=== PATIENT | male | born 1960 | race American Indian/Alaskan Native ===

== ENCOUNTER 2017-08-19 12:48 | Inpatient (IN) | payer OTHER ==
[2017-08-19 15:37] LABS: Basophils # (Auto) 0.1 K/mm3 (0.0-0.1); Basophils % (Auto) 0.5 % (0.0-1.8); Eosinophils % (Auto) 0.1 % (0.0-4.3); Hematocrit 21.3 % (35.5-45.6); Hemoglobin 6.3 gm/dl (11.8-15.2); Lymphocytes % (Auto) 9.3 % (13.4-35.0); Mean Corpuscular HGB Conc 30 % (32-34); Mean Corpuscular Volume 76 fl (84-94); Monocytes # (Auto) 1.2 K/mm3 (0.0-0.8); Monocytes % (Auto) 11.3 % (0.0-7.3); Platelet Count 387 K/mm3 (140-440); Red Blood Count 2.78 M/mm3 (3.65-5.03)
[2017-08-19 15:38] LABS: Mean Corpuscular Hemoglobin 23 pg (28-32); Red Cell Distribution Width 23.7 % (13.2-15.2)
[2017-08-19 16:16] LABS: Bilirubin,Urine NEG (Negative); Blood,Urine NEG (Negative); Color,Urine Yellow (Yellow); Mucus,Urine FEW /HPF; Nitrite,Urine NEG (Negative); Protein,Urine <15 mg/dL mg/dL (Negative); Urobilinogen,Urine < 2.0 mg/dL (<2.0)
--- NOTE | 2017-08-19 16:35 | Emergency Department Report ---
ED Abdominal Pain HPI - General Chief Complaint: Abdominal Pain Stated Complaint: ABD PAIN Time Seen by Provider: 08/19/17 16:24 Source: EMS Mode of arrival: Stretcher Limitations: Physical Limitation - History of Present Illness MD Complaint: abdominal pain -: Sudden Location: RLQ Radiation: none Migration to: no migration Severity scale (0 -10): 10 Quality: stabbing Consistency: constant Improves With: rest Worsens With: movement Context: recent surgery/procedure (patient had a ileostomy placed at [facility] on ) Associated Symptoms: fever, chills - Related Data Allergies Allergy/AdvReac Type Severity Reaction Status Date / Time No Known Allergies Allergy Unverified 08/19/17 14:51 ED Review of Systems ROS: Stated complaint: ABD PAIN Other details as noted in HPI Comment: All other systems reviewed and negative Constitutional: chills, fever, weakness Eyes: as per HPI ENT: as per HPI Respiratory: no symptoms reported Cardiovascular: as per HPI Endocrine: no symptoms reported Gastrointestinal: as per HPI, abdominal pain Genitourinary: as per HPI Musculoskeletal: as per HPI Skin: as per HPI Neurological: as per HPI, weakness Psychiatric: as per HPI Hematological/Lymphatic: as per HPI ED Past Medical Hx - Past Medical History Previous Medical History?: Yes Additional medical history: Patient has a history of ulcerative colitis with ileostomy hepatitis B cocaine abuse iron deficiency anemia - Surgical History Past Surgical History?: Yes Additional Surgical History: Ileostomy - Family History Family history: no significant - Social History Smoking Status: Former Smoker Substance Use Type: None ED Physical Exam - General Limitations: Physical Limitation General appearance: alert, in no apparent distress - Head Head exam: Present: atraumatic, normocephalic - Eye Eye exam: Present: normal appearance - ENT ENT exam: Present: mucous membranes dry - Neck Neck exam: Present: normal inspection - Respiratory Respiratory exam: Present: normal lung sounds bilaterally. Absent: respiratory distress - Cardiovascular Cardiovascular Exam: Present: regular rate, normal rhythm. Absent: systolic murmur, diastolic murmur, rubs, gallop - GI/Abdominal GI/Abdominal exam: Present: soft, tenderness (right lower quadrant tenderness), normal bowel sounds - Rectal Rectal exam: Present: deferred - Extremities Exam Extremities exam: Present: normal inspection - Back Exam Back exam: Present: normal inspection - Neurological Exam Neurological exam: Present: alert, oriented X3 - Psychiatric Psychiatric exam: Present: normal affect, normal mood - Skin Skin exam: Present: warm, dry, intact, normal color. Absent: rash ED Course Vital Signs 08/19/17 08/19/17 08/19/17 14:39 14:45 14:46 Temperature 101.2 F H Pulse Rate 104 H 122 H 119 H Respiratory 24 22 Rate Blood Pressure 111/59 111/59 Blood Pressure [Right] O2 Sat by Pulse 100 99 Oximetry 08/19/17 08/19/17 08/19/17 14:50 15:00 15:15 Temperature 101.2 F H Pulse Rate 119 H 116 H 118 H Respiratory 22 28 H 23 Rate Blood Pressure 121/79 121/79 Blood Pressure 111/59 [Right] O2 Sat by Pulse 99 100 97 Oximetry 08/19/17 08/19/17 08/19/17 15:30 15:45 16:00 Temperature Pulse Rate 116 H 116 H 119 H Respiratory 26 H 19 17 Rate Blood Pressure 116/77 116/77 121/73 Blood Pressure [Right] O2 Sat by Pulse 100 100 99 Oximetry 08/19/17 08/19/17 08/19/17 16:15 16:30 16:45 Temperature Pulse Rate 117 H 117 H 115 H Respiratory 31 H 30 H 26 H Rate Blood Pressure 121/73 116/78 116/78 Blood Pressure [Right] O2 Sat by Pulse 100 100 100 Oximetry 08/19/17 08/19/17 08/19/17 17:23 17:30 17:35 Temperature Pulse Rate 118 H Respiratory 28 H 15 Rate Blood Pressure 116/78 119/81 Blood Pressure [Right] O2 Sat by Pulse 100 100 Oximetry 08/19/17 08/19/17 08/19/17 17:44 17:46 18:00 Temperature 101.2 F H Pulse Rate 118 H 118 H 115 H Respiratory 15 21 20 Rate Blood Pressure 119/81 109/74 Blood Pressure 111/59 [Right] O2 Sat by Pulse 100 99 Oximetry 08/19/17 08/19/17 08/19/17 18:16 18:30 18:46 Temperature Pulse Rate 116 H 112 H 113 H Respiratory 19 19 18 Rate Blood Pressure 109/74 111/72 111/72 Blood Pressure [Right] O2 Sat by Pulse 98 99 100 Oximetry 08/19/17 08/19/17 08/19/17 19:00 19:16 19:30 Temperature Pulse Rate 112 H 112 H 110 H Respiratory 20 20 20 Rate Blood Pressure 108/73 108/73 89/55 Blood Pressure [Right] O2 Sat by Pulse 100 100 100 Oximetry 08/19/17 08/19/17 08/19/17 19:46 20:00 20:16 Temperature Pulse Rate 109 H 108 H 106 H Respiratory 17 16 23 Rate Blood Pressure 89/55 105/71 105/71 Blood Pressure [Right] O2 Sat by Pulse 100 98 100 Oximetry 08/19/17 08/19/17 20:30 21:22 Temperature 99.3 F Pulse Rate 105 H 105 H Respiratory 20 20 Rate Blood Pressure 106/67 Blood Pressure 111/59 [Right] O2 Sat by Pulse Oximetry ED Medical Decision Making - Lab Data Result diagrams: 08/19/17 15:20 08/19/17 18:00 - Radiology Data Radiology results: report reviewed - Medical Decision Making At [address] hart and he recommends patient be transferred to [facility] where patient had the surgery. however after discussing with [facility], [facility] is currently on diversion for all beds. Will consult hospitalist for admission here for colitis since pt appears stable from a surgical stand point. Hospitalist agreed to admit. - Differential Diagnosis colitis. surgical site infection. Critical care attestation.: If time is entered above; I have spent that time in minutes in the direct care of this critically ill patient, excluding procedure time. ED Disposition Clinical Impression: Abdominal pain, Fever, Colitis Disposition: OP ADMIT IP TO THIS HOSP Is pt being admited?: Yes Does the pt Need Aspirin: No Condition: Serious Time of Disposition: 21:17
[2017-08-19] MEDS ORDERED: TYLENOL PO ONE (16:36)
[2017-08-19] MEDS ORDERED: DILAUDID IV ONE (17:27)
[2017-08-19] MEDS ORDERED: DILAUDID ONE (17:33)
--- NOTE | 2017-08-19 17:50 | Cat Scan Report ---
FINAL REPORT PROCEDURE: CT ABDOMEN PELVIS WO CON TECHNIQUE: Computerized axial tomography of the abdomen and pelvis was performed without intravenous contrast. This study is performed without intravascular contrast material and its sensitivity for abdominal and pelvic pathology, including neoplasms, inflammation, abscess, free fluid, thrombosis, arterial dissection and infarction, is reduced compared with a contrast enhanced study. HISTORY: abd pain fever COMPARISON: No prior studies are available for comparison. FINDINGS: Lower Lung akins: Small amount of dependent atelectasis seen in the left base. Lung bases otherwise are unremarkable. Upper Abdomen: Tissue contrast is poor secondary to the patient's body habitus. There appears to be a 6.6 millimeters cyst in the right lobe of the liver posteriorly. Gallbladder appears to be directed anteriorly and only partially filled otherwise is unremarkable. On image 35 series 2 there is a calcific density seen initial small caliber tubular structure possibly representing choledocholithiasis. Intrahepatic ducts are not significantly distended. There is a 1.9 x 3.1 centimeter cystic area seen projecting along the posterior aspect of the right lobe of the liver laterally image 32 series 2. Etiology is uncertain. This could represent an exophytic mass projecting from the liver. I cannot exclude a fluid collection from hematoma seroma or abscess. Adrenal glands, the pancreas and the spleen are unremarkable. There is an ostomy visualized in the right lower quadrant anteriorly. There is a bubble of gas in the peritoneal space in the right upper quadrant image 42 series 2. This could be related to recent interventional procedure if there has been a recent procedure. Correlation with procedure history is recommended. I cannot exclude leaking viscus, perforated bowel. Kidneys, Ureters and Urinary bladder: Right kidney right ureter and urinary bladder are unremarkable. There appears to be mild left-sided hydronephrosis. The cause is not clearly identified. No definite ureteral calculi are seen. There are multiple calcifications in the lower pelvis which appear to represent phleboliths. Urinary bladder is only partially filled. Retroperitoneum: Atherosclerotic changes are seen in the abdominal aorta. No aneurysm is visualized. Nonspecific subcentimeter lymph nodes are seen in the retroperitoneum. No pathologically enlarged lymph nodes are identified. Bowel: There is abnormal fluid collection in the left flank image 37 series 2 measuring 7.4 x 3.2 centimeters containing some bubbles of gas anteriorly suggesting an abscess. I do not see evidence of bowel obstruction. There appears to be an enteric suture line in the mid pelvis anteriorly. The barry of the rectum appear thickened suggesting a nonspecific colitis. Reproductive organs: Other: Postsurgical changes are seen in the left femur. There is a compression screw device present as well as an intramedullary jacque in the left femur. Callus formation is visualized at a previous fracture site. No acute bony abnormalities are identified. IMPRESSION: Suboptimal study due to the lack of IV contrast, oral contrast or normal body tissue contrast. Large fluid collection seen left flank posteriorly as described contains a few bubbles of gas suggesting a large abscess. Possible 2nd abscess hematoma or seroma adjacent to the right lobe of the liver posteriorly inferiorly as described. I cannot exclude an exophytic mass projecting from the liver. Please see above image reference numbers. An ostomy is visualized in the right lower quadrant. Small amount of free intraperitoneal gas is seen. This could be related to recent procedure. I cannot exclude perforated bowel or leaking viscus. Correlation with prior interventional procedure history is recommended. Mild left-sided hydronephrosis. The cause is not clearly identified. Postsurgical changes left femur as described. .
--- NOTE | 2017-08-19 18:42 | XRay Report ---
FINAL REPORT PROCEDURE: XR ABDOMEN 1V AP TECHNIQUE: AP supine portable radiograph of the abdomen was obtained at 08/19/2017 20:13 (T) . HISTORY: Abdominal Pain COMPARISON: No prior studies are available for comparison. FINDINGS: Nonspecific bowel gas pattern visualized. No abnormal masses or calcifications are identified. No acute bony abnormalities are seen. There is deformity of the left hip from prior intratrochanteric fracture. A compression screw device is partially visualized.. IMPRESSION: No acute abnormality is seen.
[2017-08-19 18:48] LABS: Alanine Aminotransferase 9 units/L (7-56); Albumin 1.8 g/dL (3.9-5); BUN/Creatinine Ratio 15; Blood Urea Nitrogen 12 mg/dL (9-20); Calcium 6.9 mg/dL (8.4-10.2); Hemolysis Index 20
[2017-08-19] MEDS ORDERED: NACL 0.9% 500 ML 500 ML IV ONE (22:33)
--- NOTE | 2017-08-19 22:42 | History and Physical Report ---
History of Present Illness Date of examination: 08/19/17 Chief complaint: Generalized weakness History of present illness: 57-year-old -[place] male with past medical history significant for colitis status post colectomy, colostomy bag presented to the emergency department because of complaints of generalized weakness, fever, and abdominal pain for the last 2 days. Patient had colectomy on July 12 at [facility] for colitis and discharged home. Patient is complaining of generalized abdominal pain, cutting type, 10 out of 10 in intensity, with no radiation. Patient denied nausea or vomiting, or change in consistency of stool in the ostomy. No bleeding from ostomy site. The emergency department CT of abdomen and pelvis was done showed fluid collection. Hemoglobin and hematocrit was done and found to be 6.3/21.3. Elevated lactic acid level. Albumin was 1.8. General surgery was consulted and recommended to transfer patient to [place] to be followed by the surgeon who did the procedure but [place] is on diversion and patient is admitted for symptom management of sepsis, abdominal abscess, severe anemia. REVIEW OF SYSTEMS: GENERAL: Patient lost weight, fatigue and fever HEAD: no head ache EYES: no blurry vision, no acute visual loss EARS: no hearing loss, no discharge, no earache NOSE: no stuffiness, no sneezing, no discharge MOUTH, THROAT AND NECK: no bleeding gums, no sore throat, no swollen neck CARDIAC: no palpitations, no dyspnea on exertion, no orthopnea, no PND, no edema , no chest pain RESPIRATORY: no shortness of breath, no wheeze, no cough, no sputum, no hemoptysis, no asthma GI: As stated in the HPI. URINARY: no change in frequency, no urgency, no polyuria, no hematuria, no incontinence MUSCULOSKELETAL: no muscle weakness, no pain, no joint stiffness NEUROLOGIC: no loss of sensation/numbness, no tingling, no tremors, no weakness/ paralysis HEMATOLOGIC: no anemia, no easy bruising SKIN: no rashes ENDOCRINE: no heat/cold intolerance, no polyuria, no polydipsia, no thyroid problems, no diabetes PSYCHIATRIC: no anxiety, no depression, no suicidal ideations Past History Past Medical History: other (colitis) Past Surgical History: bowel surgery Social history: smoking (quit smoking cigarettes, marijuana 3 months ago), alcohol abuse (quit 3 months ago), full code. denies: prescription drug abuse, IV drug use Family history: no significant family history Medications and Allergies Allergies Allergy/AdvReac Type Severity Reaction Status Date / Time No Known Allergies Allergy Unverified 08/19/17 14:51 Active Meds: Active Medications Heparin Sodium (Porcine) (Heparin) 5,000 unit SUB-Q Q8HR WINTER Piperacillin Sod/Tazobactam Sod (Zosyn/Ns 3.375gm/50ml) 3.375 gm in 50 mls @ 100 mls/hr IV Q6HR WINTER Vancomycin HCl (Vancomycin Pharmacy To Dose) 1 each IV PKCONSULT WINTER PRN Reason: Protocol Exam - Physical Exam Narrative exam: Not in cardiopulmonary distress. The patient is cachectic. Vital signs as documented. Head exam is unremarkable. No scleral icterus . Neck is without jugular venous distension, thyromegaly, or carotid bruits. Lungs are clear to auscultation. Cardiac exam reveals regular rate and Rhythm. First and second heart sounds normal. No murmurs, rubs or gallops. Abdominal exam reveals colostomy bag in place draining greenish material. Extremities are nonedematous and both femoral and pedal pulses are normal. CASE ASSEMBLER: Alert and oriented 3. No focal weakness. - Constitutional Vitals: Temp Pulse Resp BP Pulse Ox 99.3 F 105 H 20 111/59 100 08/19/17 21:22 08/19/17 21:22 08/19/17 21:22 08/19/17 21:22 08/19/17 20:16 Results - Labs CBC & Chem 7: 08/19/17 15:20 08/19/17 18:00 Labs: Laboratory Last Values WBC 11.0 K/mm3 (4.5-11.0) 08/19/17 15:20 RBC 2.78 M/mm3 (3.65-5.03) L 08/19/17 15:20 Hgb 6.3 gm/dl (11.8-15.2) L 08/19/17 15:20 Hct 21.3 % (35.5-45.6) L 08/19/17 15:20 MCV 76 fl (84-94) L 08/19/17 15:20 MCH 23 pg (28-32) L 08/19/17 15:20 MCHC 30 % (32-34) L 08/19/17 15:20 RDW 23.7 % (13.2-15.2) H 08/19/17 15:20 Plt Count 387 K/mm3 (140-440) 08/19/17 15:20 Lymph % (Auto) 9.3 % (13.4-35.0) L 08/19/17 15:20 Warren % (Auto) 11.3 % (0.0-7.3) H 08/19/17 15:20 Eos % (Auto) 0.1 % (0.0-4.3) 08/19/17 15:20 Baso % (Auto) 0.5 % (0.0-1.8) 08/19/17 15:20 Lymph # 1.0 K/mm3 (1.2-5.4) L 08/19/17 15:20 Warren # 1.2 K/mm3 (0.0-0.8) H 08/19/17 15:20 Eos # 0.0 K/mm3 (0.0-0.4) 08/19/17 15:20 Baso # 0.1 K/mm3 (0.0-0.1) 08/19/17 15:20 Seg Neutrophils % 78.8 % (40.0-70.0) H 08/19/17 15:20 Seg Neutrophils # 8.7 K/mm3 (1.8-7.7) H 08/19/17 15:20 Sodium 139 mmol/L (137-145) 08/19/17 18:00 Potassium 3.4 mmol/L (3.6-5.0) L 08/19/17 18:00 Chloride 104.6 mmol/L (98-107) 08/19/17 18:00 Carbon Dioxide 19 mmol/L (22-30) L 08/19/17 18:00 Anion Gap 19 mmol/L 08/19/17 18:00 BUN 12 mg/dL (9-20) 08/19/17 18:00 Creatinine 0.8 mg/dL (0.8-1.5) 08/19/17 18:00 Estimated GFR > 60 ml/min 08/19/17 18:00 BUN/Creatinine Ratio 15 % 08/19/17 18:00 Glucose 76 mg/dL (75-100) 08/19/17 18:00 Lactic Acid 2.50 mmol/L (0.7-2.0) H* 08/19/17 15:20 Calcium 6.9 mg/dL (8.4-10.2) L 08/19/17 18:00 Total Bilirubin 0.30 mg/dL (0.1-1.2) 08/19/17 18:00 AST 17 units/L (5-40) 08/19/17 18:00 ALT 9 units/L (7-56) 08/19/17 18:00 Alkaline Phosphatase 108 units/L (35-129) 08/19/17 18:00 Total Protein 5.9 g/dL (6.3-8.2) L 08/19/17 18:00 Albumin 1.8 g/dL (3.9-5) L 08/19/17 18:00 Albumin/Globulin Ratio 0.4 % 08/19/17 18:00 Urine Color Yellow (Yellow) 08/19/17 16:05 Urine Turbidity Clear (Clear) 08/19/17 16:05 Urine pH 5.0 (5.0-7.0) 08/19/17 16:05 Ur Specific Gypsum 1.014 (1.003-1.030) 08/19/17 16:05 Urine Protein <15 mg/dl mg/dL (Negative) 08/19/17 16:05 Urine Glucose (UA) Neg mg/dL (Negative) 08/19/17 16:05 Urine Ketones Neg mg/dL (Negative) 08/19/17 16:05 Urine Blood Neg (Negative) 08/19/17 16:05 Urine Nitrite Neg (Negative) 08/19/17 16:05 Urine Bilirubin Neg (Negative) 08/19/17 16:05 Urine Urobilinogen < 2.0 mg/dL (<2.0) 08/19/17 16:05 Ur Leukocyte Esterase Sm (Negative) 08/19/17 16:05 Urine WBC (Auto) 2.0 /HPF (0.0-6.0) 08/19/17 16:05 Urine RBC (Auto) 3.0 /HPF (0.0-6.0) 08/19/17 16:05 U Epithel Cells (Auto) 1.0 /HPF (0-13.0) 08/19/17 16:05 Urine Mucus Few /HPF 08/19/17 16:05 Blood Type B POSITIVE 08/19/17 16:45 Antibody Screen Negative 08/19/17 16:45 Crossmatch See Detail 08/19/17 16:45 H&H is 6.3/21.3, lactic acid 2.5, albumin 1.8 - Imaging and Cardiology CT scan - abdomen: report reviewed (showed abscess in the abdomen), image reviewed Assessment and Plan Assessment and plan: Sepsis Severe symptomatic anemia Lactic acidosis Intra-abdominal abscess Severe malnutrition Colitis - Patient started with IV vancomycin and Zosyn, will repeat lactic acid level - IV fluids, nothing by mouth - GI and surgery consult - CT abdomen with contrast is pending - Nutrition consult - Transfuse 2 units of blood, will do posttransfusion H&H DVT prophylaxis - Chemical because of severe anemia Disposition - Admit to medical floor Advance Directives: Yes VTE prophylaxis?: Mechanical Contraindication Mechanical VTE Prophylaxis: Contraindicated Reason for no VTE Prophylaxis: Medical contraindication Plan of care discussed with patient/family: Yes
[2017-08-19] MEDS ORDERED: VANCOMYCIN PHARMACY TO DOSE IV SCH (23:00)
[2017-08-19] MEDS ORDERED: VANCOMYCIN/NS 1 GM/250 ML 1 GM/250 ML BAG IV ONE (23:00)
[2017-08-19] MEDS ORDERED: NACL 0.9% 1000 ML 0 ML ONE (23:03)
[2017-08-19] MEDS: VANCOMYCIN 750 MG in NACL 0.9% 250ML 250 ML IV SCH (23:30)
[2017-08-19] MEDS: ZOSYN/NS 3.375GM/50ML 3.375 GM/50 ML BAG IV SCH (23:30)
[2017-08-19] MEDS: D5NS 1,000 ML IV SCH (23:41)
--- NOTE | 2017-08-20 00:40 | Cat Scan Report ---
FINAL REPORT PROCEDURE: CT ABDOMEN PELVIS W CON TECHNIQUE: Computerized axial tomography of the abdomen and pelvis was performed after the IV injection of iodinated nonionic contrast. HISTORY: intraabdominal abscess COMPARISON: Prior unenhanced CT scan abdomen and pelvis earlier today. FINDINGS: There is an ostomy visualized in the right lower quadrant. Postsurgical changes are seen at the rectosigmoid junction. A suture line is present. The rectum appears to be fluid filled. The wall is thickened and shows heterogeneous enhancement. I cannot exclude infected fluid within rectal stump. There are 3 irregular fluid collections present. The largest is in the left flank posteriorly. This extends craniocaudal 18.1 centimeters. This collection is best visualized on coronal reconstruction 77 series 200 and a few of the adjacent images and on sagittal reconstruction image 130 series 201. This fluid collection extends from the left flank superiorly to the level of the spleen and slightly directed medially towards the stomach. There is a 2nd fluid collection visualized along the medial surface of the right lobe of the liver extending towards the gallbladder fossa. This extends inferiorly to the inferior edge of the right lobe of the liver. This collection measures approximately 5.5 x 2.0 centimeters. This is seen best on axial image 84 series 3. This fluid collection extends anteriorly to the anterior abdominal wall. There is a fluid collection seen along the inferior aspect of the right lobe of the liver measuring 2.9 x 1.8 centimeter on image 57 series 3 which may communicate with this fluid collection extending to the gallbladder fossa. A 3rd fluid collection is visualized anterior to the left psoas muscle and left common iliac artery seen on axial image 109 series 3. This measures approximately 6.5 x 1.8 centimeter. These fluid collections could represent seromas or hematomas however there are small bubbles of gas seen in each of these fluid collections and therefore I am concerned they represent multi focal abscess. Gallbladder wall appears mildly thickened. This may be due to inflammatory response secondary to the adjacent suspected abscess. On axial image 64 series 3 there is a small calcification present suggesting gallstone within the neck of the gallbladder or within the cystic duct. Intrahepatic ducts are not distended. Two low-density nodules are seen in the liver, 1 in the right lobe posteriorly superiorly 1 in the left lobe anteriorly. These measure under a centimeter and appear to represent small hepatic cyst. The adrenal glands, the pancreas and spleen are unremarkable. Kidneys ureters are and urinary bladder are unremarkable. I do not see evidence of bowel obstruction. IMPRESSION: Postsurgical changes are seen in the rectosigmoid junction as described. There is an ostomy visualized in the right lower quadrant. Three abnormal fluid collections are present in the abdomen, 1 along the right lobe of the liver medially, 1 adjacent to the anterior aspect of the left psoas muscle and a 3rd large fluid collection in the left flank extending superiorly adjacent to the spleen and stomach. I suspect it each of these represent an abscess. There is fluid seen filling the rectal stump. There is enhancement of the rectum. I cannot exclude infected material within the rectal stump. Graft gallbladder barry mildly thickened which may be an inflammatory response secondary to the suspected adjacent abscess. Small gallstone suspected in the neck of the gallbladder or possibly in the cystic duct. Small hepatic cysts suspected as described. Postsurgical changes seen in the left hip. There is a compression screw device and an intramedullary jacque in the left femur.
[2017-08-20] MEDS: ZOSYN/NS 3.375GM/50ML 3.375 GM/50 ML BAG IV SCH ×4 (01:02→20:51)
[2017-08-20] MEDS: DILAUDID IV PRN ×5 (05:25→21:54)
[2017-08-20] MEDS: KCL 10MEQ/100ML 10 MEQ/100 ML BAG IV SCH ×4 (09:03→12:34)
--- NOTE | 2017-08-20 10:59 | Progress Note ---
Assessment and Plan Assessment and plan: 57-year-old -[place] male with past medical history significant for colitis status post colectomy, colostomy bag presented to the emergency department because of complaints of generalized weakness, fever, and abdominal pain for the last 2 days. Patient had colectomy on July 12 at [facility], pw abdominal pain and increased gas in colostomy bag, hg was 6.3 CT abd showed 3 collections- one largest at the left flank 7.4x3.2 cm with gas bubbles, another one at right liver lobe 5.5x2 cm and another one at right lower liver 2.4x1.8cm, also a rectal stump collection Sepsis/due to intraabdominal abscess/colitis case dw ID, continue abx and antifungals Discussed with general surgeon, who recommends transfer the patient back to [facility] where his surgeries were done, he'll most likely need extensive surgery- planned for transfer back to [facility], but they are currently in diversion, will call again tomorrow Severe symptomatic anemia -transfusion in progress Severe malnutrition continue to encourage balanced diet, nutrition consult History Interval history: Review of systems Constitutional: He is having fevers, no malaise, no joint pains CVS: No chest pain, no orthopnea, no dyspnea on exertion, no pedal edema GI: Abdominal pain is improved. Respiratory: No shortness of breath, no wheezing, no coughing Hospitalist Physical - Physical exam Narrative exam: General.: Appears well, no distress, nontoxic, cachectic HEENT: Moist mucous membranes, extraocular muscles intact, no lymphadenopathy Neck: supple Cardiac: S1-S2 heard Lungs: clear to auscultation bilaterally Abdomen: Colostomy bag seen in right lower quadrant Extremities: no edema clubbing or cyanosis Skin: no rash or lesions Neurologic: no gross focal deficits Psych: appropriate behavior, appropriate mood, corporative, judgment intact - Constitutional Vitals: Temp Pulse Resp BP Pulse Ox 99.1 F 87 18 126/83 100 08/20/17 07:41 08/20/17 07:41 08/20/17 09:06 08/20/17 07:41 08/20/17 07:41 Results - Labs CBC & Chem 7: 08/20/17 15:20 08/20/17 15:20 Labs: Laboratory Last Values WBC 11.0 K/mm3 (4.5-11.0) 08/19/17 15:20 RBC 2.78 M/mm3 (3.65-5.03) L 08/19/17 15:20 Hgb 6.3 gm/dl (11.8-15.2) L 08/19/17 15:20 Hct 21.3 % (35.5-45.6) L 08/19/17 15:20 MCV 76 fl (84-94) L 08/19/17 15:20 MCH 23 pg (28-32) L 08/19/17 15:20 MCHC 30 % (32-34) L 08/19/17 15:20 RDW 23.7 % (13.2-15.2) H 08/19/17 15:20 Plt Count 387 K/mm3 (140-440) 08/19/17 15:20 Lymph % (Auto) 9.3 % (13.4-35.0) L 08/19/17 15:20 Turner % (Auto) 11.3 % (0.0-7.3) H 08/19/17 15:20 Eos % (Auto) 0.1 % (0.0-4.3) 08/19/17 15:20 Baso % (Auto) 0.5 % (0.0-1.8) 08/19/17 15:20 Lymph # 1.0 K/mm3 (1.2-5.4) L 08/19/17 15:20 Turner # 1.2 K/mm3 (0.0-0.8) H 08/19/17 15:20 Eos # 0.0 K/mm3 (0.0-0.4) 08/19/17 15:20 Baso # 0.1 K/mm3 (0.0-0.1) 08/19/17 15:20 Seg Neutrophils % 78.8 % (40.0-70.0) H 08/19/17 15:20 Seg Neutrophils # 8.7 K/mm3 (1.8-7.7) H 08/19/17 15:20 Sodium 139 mmol/L (137-145) 08/19/17 18:00 Potassium 3.4 mmol/L (3.6-5.0) L 08/19/17 18:00 Chloride 104.6 mmol/L (98-107) 08/19/17 18:00 Carbon Dioxide 19 mmol/L (22-30) L 08/19/17 18:00 Anion Gap 19 mmol/L 08/19/17 18:00 BUN 12 mg/dL (9-20) 08/19/17 18:00 Creatinine 0.8 mg/dL (0.8-1.5) 08/19/17 18:00 Estimated GFR > 60 ml/min 08/19/17 18:00 BUN/Creatinine Ratio 15 % 08/19/17 18:00 Glucose 76 mg/dL (75-100) 08/19/17 18:00 Lactic Acid 2.50 mmol/L (0.7-2.0) H* 08/19/17 15:20 Calcium 6.9 mg/dL (8.4-10.2) L 08/19/17 18:00 Total Bilirubin 0.30 mg/dL (0.1-1.2) 08/19/17 18:00 AST 17 units/L (5-40) 08/19/17 18:00 ALT 9 units/L (7-56) 08/19/17 18:00 Alkaline Phosphatase 108 units/L (35-129) 08/19/17 18:00 Total Protein 5.9 g/dL (6.3-8.2) L 08/19/17 18:00 Albumin 1.8 g/dL (3.9-5) L 08/19/17 18:00 Albumin/Globulin Ratio 0.4 % 08/19/17 18:00 Urine Color Yellow (Yellow) 08/19/17 16:05 Urine Turbidity Clear (Clear) 08/19/17 16:05 Urine pH 5.0 (5.0-7.0) 08/19/17 16:05 Ur Specific Townsend 1.014 (1.003-1.030) 08/19/17 16:05 Urine Protein <15 mg/dl mg/dL (Negative) 08/19/17 16:05 Urine Glucose (UA) Neg mg/dL (Negative) 08/19/17 16:05 Urine Ketones Neg mg/dL (Negative) 08/19/17 16:05 Urine Blood Neg (Negative) 08/19/17 16:05 Urine Nitrite Neg (Negative) 08/19/17 16:05 Urine Bilirubin Neg (Negative) 08/19/17 16:05 Urine Urobilinogen < 2.0 mg/dL (<2.0) 08/19/17 16:05 Ur Leukocyte Esterase Sm (Negative) 08/19/17 16:05 Urine WBC (Auto) 2.0 /HPF (0.0-6.0) 08/19/17 16:05 Urine RBC (Auto) 3.0 /HPF (0.0-6.0) 08/19/17 16:05 U Epithel Cells (Auto) 1.0 /HPF (0-13.0) 08/19/17 16:05 Urine Mucus Few /HPF 08/19/17 16:05 Blood Type B POSITIVE 08/19/17 16:45 Antibody Screen Negative 08/19/17 16:45 Crossmatch See Detail 08/19/17 16:45
[2017-08-20] MEDS: VANCOMYCIN 750 MG in NACL 0.9% 250ML 250 ML IV SCH (13:30)
--- NOTE | 2017-08-20 15:01 | Consultation ---
History of Present Illness - Reason for Consult Consult date: 08/20/17 intra-abdominal abscess Requesting physician: DAMIEN ELAINE - History of Present Illness 57 years old male with history of what appeared to be ulcerative colitis colitis status post colectomy, colostomy bag on 07/12/2017 at [facility]. Patient was admitted on 08/19/2017 due to severe abdominal pain. Patient reports that he not use severe left-sided abdominal pain 2 days ago. Pain is 10 out of 10 not radiation and cramping. Patient also reports subjective fever for the last week. He also complains of generalized weakness. Denies changes in consistency of stool in the ostomy. No bleeding from ostomy site. In the ED, initial temperature was 101.2, heart rate 104, respiration 24, O2 sat 100%, blood pressure 111/59. Initial white count 11. Hemoglobin 6.3. Platelets 387. Creatinine is 0.8. Lactic acid 2.5. Urinalysis was negative. CT of abdomen and pelvis was done showed multiple fluid collections. General surgery was consulted and recommended to transfer patient to [facility] to be followed by the surgeon who did the procedure but [facility] is on diversion. Microbiology: none Current Antimicrobials: Zosyn Vancomycin Previous Antimicrobials: Past History Past Medical History: other (colitis) Past Surgical History: bowel surgery Social history: smoking (quit smoking cigarettes, marijuana 3 months ago), alcohol abuse (quit 3 months ago), full code. denies: prescription drug abuse, IV drug use Family history: no significant family history Medications and Allergies Allergies Allergy/AdvReac Type Severity Reaction Status Date / Time No Known Allergies Allergy Unverified 08/19/17 14:51 Active Meds: Active Medications Heparin Sodium (Porcine) (Heparin) 5,000 unit SUB-Q Q8HR WINTER Hydromorphone HCl (Dilaudid) 0.5 mg IV Q3H PRN PRN Reason: Pain , Severe (7-10) Last Admin: 08/20/17 12:37 Dose: 0.5 mg Piperacillin Sod/Tazobactam Sod (Zosyn/Ns 3.375gm/50ml) 3.375 gm in 50 mls @ 100 mls/hr IV Q6HR WINTER Last Admin: 08/20/17 06:56 Dose: 100 mls/hr Vancomycin HCl 750 mg/ Sodium (Chloride) 257.5 mls @ 166.667 mls/hr IV Q12H WINTER Dextrose/Sodium Chloride (D5ns) 1,000 mls @ 100 mls/hr IV DIRECT WINTER Last Admin: 08/19/17 23:41 Dose: 100 mls/hr Vancomycin HCl (Vancomycin Pharmacy To Dose) 1 each IV PKCONSULT WINTER PRN Reason: Protocol Review of Systems All systems: negative (as per HPI rest of system negative) Physical Examination - Physical Exam Narrative exam: General appearance: Alert in NAD, conversant Eyes: anicteric sclerae, moist conjunctivae; no lid-lag; PERRLA HENT: Atraumatic; oropharynx clear with moist mucous membranes and no mucosal ulcerations/no oral thrush; normal hard and soft palate. Normal external ears. Neck: Trachea midline; supple, no thyromegaly or lymphadenopathy Lungs: CTA, with normal respiratory effort and no intercostal retractions CV: RRR, no murmurs Abdomen: tense + TTP diffusely, ostomy with loose stools Extremities: No peripheral edema or extremity lymphadenopathy Skin: Normal temperature, turgor and texture; no rash, ulcers or subcutaneous nodules Psych: Appropriate affect, alert and oriented to person, place and time. Neuro: alert and oriented x 3. Moving all extermities Lines: No CVL / PICC - Constitutional Vitals: Vital Signs Temp Pulse Resp BP Pulse Ox 99.9 F H 107 H 18 105/71 98 08/20/17 14:18 08/20/17 14:18 08/20/17 14:18 08/20/17 14:18 08/20/17 14:18 Temperature -Last 24 Hours Temperature 99.9 F Temperature 100.5 F Temperature 99.1 F Temperature 99.9 F Temperature 99.1 F Temperature 99.9 F Temperature 98.7 F Temperature 99.1 F Temperature 98.7 F Temperature 98.7 F Temperature 98.7 F Temperature 99.3 F Temperature 99.2 F Temperature 99.2 F Temperature 98.6 F Temperature 98.6 F Temperature 97.8 F Temperature 99.3 F Temperature 99.3 F Temperature 101.2 F Results - Labs CBC & Chem 7: 08/19/17 15:20 08/19/17 18:00 Labs: Abnormal lab results 08/19/17 08/19/17 08/19/17 Range/Units 15:20 15:20 16:45 RBC 2.78 L (3.65-5.03) M/mm3 Hgb 6.3 L (11.8-15.2) gm/dl Hct 21.3 L (35.5-45.6) % MCV 76 L (84-94) fl MCH 23 L (28-32) pg MCHC 30 L (32-34) % RDW 23.7 H (13.2-15.2) % Lymph % (Auto) 9.3 L (13.4-35.0) % Dawes % (Auto) 11.3 H (0.0-7.3) % Lymph # 1.0 L (1.2-5.4) K/mm3 Dawes # 1.2 H (0.0-0.8) K/mm3 Seg Neutrophils % 78.8 H (40.0-70.0) % Seg Neutrophils # 8.7 H (1.8-7.7) K/mm3 Potassium (3.6-5.0) mmol/L Carbon Dioxide (22-30) mmol/L Lactic Acid 2.50 H* (0.7-2.0) mmol/L Calcium (8.4-10.2) mg/dL Total Protein (6.3-8.2) g/dL Albumin (3.9-5) g/dL Crossmatch See Detail 08/19/17 Range/Units 18:00 RBC (3.65-5.03) M/mm3 Hgb (11.8-15.2) gm/dl Hct (35.5-45.6) % MCV (84-94) fl MCH (28-32) pg MCHC (32-34) % RDW (13.2-15.2) % Lymph % (Auto) (13.4-35.0) % Dawes % (Auto) (0.0-7.3) % Lymph # (1.2-5.4) K/mm3 Dawes # (0.0-0.8) K/mm3 Seg Neutrophils % (40.0-70.0) % Seg Neutrophils # (1.8-7.7) K/mm3 Potassium 3.4 L (3.6-5.0) mmol/L Carbon Dioxide 19 L (22-30) mmol/L Lactic Acid (0.7-2.0) mmol/L Calcium 6.9 L (8.4-10.2) mg/dL Total Protein 5.9 L (6.3-8.2) g/dL Albumin 1.8 L (3.9-5) g/dL Crossmatch Assessment and Plan Assessment: 1) Sepsis: Present on admission, manifested by fever, tachycardia, leukocytosis , increased lactate. Etiology most likely multiple intra-abdominal abscesses. 2) Multiple intra-abdominal abscesses: pt with recent colectomy/colostomy on 07/12/17 at [facility]: CT abd showed 3 collections- one largest at the left flank 7.4x3.2 cm with gas bubbles, another one at right liver lobe 5.5x2 cm and another one at right lower liver 2.4x1.8cm, also a rectal stump collection 3) Presumed ulcerative colitis 4) Severe anemia Plan: -agree with transferring to [facility] to his primary surgical team -if this is not a possibility-then IR consultation for percutaneous drainage, send specimen for cultures -check CRP -continue zosyn -add fluconazole -stop vancomycin Thank you Dr Elaine for your consultation, will follow up with you. Rita Bermudez MD Infectious Diseases Specialist [facility] ([facility] M [phone] O [phone]
[2017-08-20 15:32] LABS: Hematocrit 27.6 % (35.5-45.6); Hemoglobin 8.5 gm/dl (11.8-15.2); Mean Corpuscular HGB Conc 31 % (32-34); Mean Corpuscular Volume 82 fl (84-94); Platelet Count 367 K/mm3 (140-440); Red Blood Count 3.35 M/mm3 (3.65-5.03)
[2017-08-20 15:33] LABS: Mean Corpuscular Hemoglobin 26 pg (28-32); Red Cell Distribution Width 23.9 % (13.2-15.2)
[2017-08-20 15:44] LABS: BUN/Creatinine Ratio 12; Blood Urea Nitrogen 11 mg/dL (9-20); Calcium 7.1 mg/dL (8.4-10.2); Hemolysis Index 27
[2017-08-20 16:23] LABS: Basophils % (Manual) 0 % (0.0-1.8); Eosinophils % (Manual) 0 % (0.0-4.3); Total Cells Counted 100
[2017-08-20 16:24] LABS: Anisocytosis 1+; Ovalocytes Few; Poikilocytosis Few
[2017-08-20] MEDS: D5NS 1,000 ML IV SCH (18:31)
--- NOTE | 2017-08-20 18:58 | Gastroenterology Consultation ---
History of Present Illness - Reason for Consult Consult date: 08/20/[address] Scan Requesting physician: DAMIEN GARNICA - History of Present Illness The patient is an extremely poor historian. He receives most of his care at [facility] "for the last several years, and I've been bleeding." He has had "ulcers on the inside" but does not recognize the terms UC, Crohns, IBD, etc. He has not taken medication for this problem by his report. He had severe/worsening bleeding, and in early July underwent (based on CT) a subtotal colectomy with RLQ ileostomy. He was discharged home after an unknown hospital course, but still felt weak. In the last few days, he has had progressive fatigue with fevers. He called the ambulance to transport him to the nearest hospital because he was afraid there was an infection. Past History Past Medical History: other ("Ulcers in my bowels") Past Surgical History: bowel surgery (Subtotal colectomy with ileostomy 07/2018 at [facility]) Social history: smoking (quit smoking cigarettes, marijuana 3 months ago), alcohol abuse (quit 3 months ago), full code. denies: prescription drug abuse, IV drug use Family history: no significant family history Medications and Allergies Allergies Allergy/AdvReac Type Severity Reaction Status Date / Time No Known Allergies Allergy Unverified 08/19/17 14:51 Active Meds: Active Medications Heparin Sodium (Porcine) (Heparin) 5,000 unit SUB-Q Q8HR WINTER Hydromorphone HCl (Dilaudid) 0.5 mg IV Q3H PRN PRN Reason: Pain , Severe (7-10) Last Admin: 08/20/17 18:24 Dose: 0.5 mg Piperacillin Sod/Tazobactam Sod (Zosyn/Ns 3.375gm/50ml) 3.375 gm in 50 mls @ 100 mls/hr IV Q6HR WINTER Last Admin: 08/20/17 18:24 Dose: 100 mls/hr Vancomycin HCl 750 mg/ Sodium (Chloride) 257.5 mls @ 166.667 mls/hr IV Q12H WINTER Dextrose/Sodium Chloride (D5ns) 1,000 mls @ 100 mls/hr IV DIRECT WINTER Last Admin: 08/20/17 18:31 Dose: 100 mls/hr Fluconazole (Diflucan) 200 mg in 100 mls @ 100 mls/hr IV Q24HR WINTER PRN Reason: Protocol I HAVE REVIEWED AND RECONCILED THE MEDICATIONS Review of Systems - Review of Systems All systems: negative (as noted in the HPI) Exam - Constitutional Vital Signs: Temp Pulse Resp BP Pulse Ox 101.1 F H 104 H 18 111/76 99 08/20/17 16:21 08/20/17 16:21 08/20/17 16:21 08/20/17 16:21 08/20/17 16:21 General appearance: no acute distress - EENT Eyes: PERRL, EOM intact ENT: poor dentition, no thrush - Neck Neck: supple, normal ROM - Respiratory Respiratory effort: normal Respiratory: bilateral: CTA - Cardiovascular Rhythm: regular Heart Sounds: Present: S1 & S2 Extremities: no ischemia - Gastrointestinal General gastrointestinal: Present: soft, tender (Very mild), non-distended, other (Ostomy RLQ with brown liquid stool and pink mucosa) - Integumentary Integumentary: Present: clear, warm - Neurologic Neurological: alert and oriented x3 - Labs CBC & Chem 7: 08/20/17 15:20 08/20/17 15:20 Lab Results: Laboratory Results - last 24 hr 08/19/17 08/20/17 08/20/17 16:45 15:20 15:20 WBC 12.2 H RBC 3.35 L Hgb 8.5 L Hct 27.6 L D MCV 82 L MCH 26 L MCHC 31 L RDW 23.9 H Plt Count 367 Add Manual Diff Complete Total Counted 100 Seg Neuts % (Manual) 93.0 H Band Neutrophils % 0 Lymphocytes % (Manual) 2.0 L Reactive Lymphs % (Man) 0 Monocytes % (Manual) 5.0 Eosinophils % (Manual) 0 Basophils % (Manual) 0 Metamyelocytes % 0 Myelocytes % 0 Promyelocytes % 0 Blast Cells % 0 Nucleated RBC % Not Reportable Seg Neutrophils # Man 11.3 H Band Neutrophils # 0.0 Lymphocytes # (Manual) 0.2 L Abs React Lymphs (Man) 0.0 Monocytes # (Manual) 0.6 Eosinophils # (Manual) 0.0 Basophils # (Manual) 0.0 Metamyelocytes # 0.0 Myelocytes # 0.0 Promyelocytes # 0.0 Blast Cells # 0.0 WBC Morphology Not Reportable Hypersegmented Neuts Not Reportable Hyposegmented Neuts Not Reportable Hypogranular Neuts Not Reportable Smudge Cells Not Reportable Toxic Granulation Not Reportable Toxic Vacuolation Not Reportable Dohle Bodies Not Reportable Pelger-Huet Anomaly Not Reportable Aaron Rods Not Reportable Platelet Estimate Appears normal Clumped Platelets Not Reportable Plt Clumps, EDTA Not Reportable Large Platelets Not Reportable Giant Platelets Not Reportable Platelet Satelliting Not Reportable Plt Morphology Comment Not Reportable RBC Morphology Not Reportable Dimorphic RBCs Not Reportable Polychromasia Not Reportable Hypochromasia Not Reportable Poikilocytosis Few Anisocytosis 1+ Microcytosis Not Reportable Macrocytosis Not Reportable Spherocytes Not Reportable Pappenheimer Bodies Not Reportable Sickle Cells Not Reportable Target Cells Not Reportable Tear Drop Cells Not Reportable Ovalocytes Few Helmet Cells Not Reportable Vill[place] Bodies Not Reportable Poul[place] Rings Not Reportable Елена Cells Not Reportable Bite Cells Not Reportable Crenated Cell Not Reportable Elliptocytes Few Acanthocytes (Spur) Not Reportable Rouleaux Not Reportable Hemoglobin C Crystals Not Reportable Schistocytes Not Reportable Malaria parasites Not Reportable Curly Bodies Not Reportable Hem Pathologist Commnt No Sodium 130 L D Potassium 3.9 Chloride 101.9 Carbon Dioxide 16 L Anion Gap 16 BUN 11 Creatinine 0.9 Estimated GFR > 60 BUN/Creatinine Ratio 12 Glucose 118 H Calcium 7.1 L C-Reactive Protein Blood Type B POSITIVE Antibody Screen Negative Crossmatch See Detail 08/20/17 15:20 WBC RBC Hgb Hct MCV MCH MCHC RDW Plt Count Add Manual Diff Total Counted Seg Neuts % (Manual) Band Neutrophils % Lymphocytes % (Manual) Reactive Lymphs % (Man) Monocytes % (Manual) Eosinophils % (Manual) Basophils % (Manual) Metamyelocytes % Myelocytes % Promyelocytes % Blast Cells % Nucleated RBC % Seg Neutrophils # Man Band Neutrophils # Lymphocytes # (Manual) Abs React Lymphs (Man) Monocytes # (Manual) Eosinophils # (Manual) Basophils # (Manual) Metamyelocytes # Myelocytes # Promyelocytes # Blast Cells # WBC Morphology Hypersegmented Neuts Hyposegmented Neuts Hypogranular Neuts Smudge Cells Toxic Granulation Toxic Vacuolation Dohle Bodies Pelger-Huet Anomaly Aaron Rods Platelet Estimate Clumped Platelets Plt Clumps, EDTA Large Platelets Giant Platelets Platelet Satelliting Plt Morphology Comment RBC Morphology Dimorphic RBCs Polychromasia Hypochromasia Poikilocytosis Anisocytosis Microcytosis Macrocytosis Spherocytes Pappenheimer Bodies Sickle Cells Target Cells Tear Drop Cells Ovalocytes Helmet Cells Villan[place] Bodies [place]oul[place] Rings Елена Cells Bite Cells Crenated Cell Elliptocytes Acanthocytes (Spur) Rouleaux Hemoglobin C Crystals Schistocytes Malaria parasites Curly Bodies Hem Pathologist Commnt Sodium Potassium Chloride Carbon Dioxide Anion Gap BUN Creatinine Estimated GFR BUN/Creatinine Ratio Glucose Calcium C-Reactive Protein 7.50 H Blood Type Antibody Screen Crossmatch Assessment and Plan - Patient Problems (1) Abnormal abdominal CT scan Current Visit: Yes Status: Acute Plan to address problem: - Complex hx complicated by the patient's inability to fully articulate his PMHx ; will attempt to get [facility] records. - Agree with ID that fevers and WBC, as well as CT appearance, could be abscesses, but also possible would be post-operative fluid collections especially with his low albumin, complex surgery and (I suspect) underlying IBD. - For now, would monitor cultures, continue empiric abx, and plan aspiration for culture of largest fluid pocket. - May need surgical debridement, but would need to be transferred to primary surgeon, if infected.
[2017-08-20] MEDS: HEPARIN SUB-Q SCH ×3 (20:13→22:02)
[2017-08-21] MEDS: VANCOMYCIN 750 MG in NACL 0.9% 250ML 250 ML IV SCH (00:22)
[2017-08-21] MEDS: ZOSYN/NS 3.375GM/50ML 3.375 GM/50 ML BAG IV SCH ×4 (00:22→18:08)
[2017-08-21] MEDS: DILAUDID IV PRN ×6 (00:22→21:03)
[2017-08-21] MEDS: DIFLUCAN 200 MG/100 ML BAG IV SCH ×2 (03:24→10:16)
[2017-08-21] MEDS: HEPARIN SUB-Q SCH ×3 (06:08→21:03)
[2017-08-21 07:01] LABS: Basophils # (Auto) 0.1 K/mm3 (0.0-0.1); Basophils % (Auto) 0.9 % (0.0-1.8); Eosinophils % (Auto) 0.2 % (0.0-4.3); Hematocrit 27.7 % (35.5-45.6); Hemoglobin 8.6 gm/dl (11.8-15.2); Lymphocytes # (Auto) 1.3 K/mm3 (1.2-5.4); Lymphocytes % (Auto) 9.6 % (13.4-35.0); Mean Corpuscular HGB Conc 31 % (32-34); Mean Corpuscular Volume 83 fl (84-94); Monocytes # (Auto) 1.2 K/mm3 (0.0-0.8); Monocytes % (Auto) 9.5 % (0.0-7.3); Platelet Count 359 K/mm3 (140-440); Red Blood Count 3.36 M/mm3 (3.65-5.03)
[2017-08-21 07:04] LABS: Mean Corpuscular Hemoglobin 26 pg (28-32); Red Cell Distribution Width 23.6 % (13.2-15.2)
[2017-08-21 07:13] LABS: Alanine Aminotransferase 8 units/L (7-56); Albumin 1.8 g/dL (3.9-5); BUN/Creatinine Ratio 9; Blood Urea Nitrogen 11 mg/dL (9-20); Calcium 7.4 mg/dL (8.4-10.2); Hemolysis Index 1
[2017-08-21 07:25] LABS: Bilirubin,Direct < 0.2 mg/dL (0-0.2)
--- NOTE | 2017-08-21 07:54 | Progress Note ---
Assessment and Plan Assessment and plan: 57-year-old -[place] male with past medical history significant for colitis status post colectomy, colostomy bag presented to the emergency department because of complaints of generalized weakness, fever, and abdominal pain for the last 2 days. Patient had colectomy on July 12 at [place], pw abdominal pain and increased gas in colostomy bag, hg was 6.3 CT abd showed 3 collections- one largest at the left flank 7.4x3.2 cm with gas bubbles, another one at right liver lobe 5.5x2 cm and another one at right lower liver 2.4x1.8cm, also a rectal stump collection Sepsis/due to intraabdominal abscess/colitis case dw ID, continue abx and antifungals Discussed with general surgeon, who recommends transfer the patient back to [place] where his surgeries were done, he'll most likely need extensive surgery- -IR for drainage of largest fluid collection (abscess?) if unable to go to [place] today planned for transfer back to [place], they were on diversion yesterday, I have called and waiting to be called back, Severe symptomatic anemia likely AOCD and acute blood loss -sp transfusion IBD? his clinical picture is most consistent with this may be the cause of his repeated inflammation and infections Severe malnutrition continue to encourage balanced diet, nutrition consult History Interval history: Review of systems Constitutional: He is having fevers, no malaise, no joint pains CVS: No chest pain, no orthopnea, no dyspnea on exertion, no pedal edema GI: Abdominal pain is improved. Respiratory: No shortness of breath, no wheezing, no coughing Hospitalist Physical - Physical exam Narrative exam: General.: Appears well, no distress, nontoxic, cachectic HEENT: Moist mucous membranes, extraocular muscles intact, no lymphadenopathy Neck: supple Cardiac: S1-S2 heard Lungs: clear to auscultation bilaterally Abdomen: Colostomy bag seen in right lower quadrant Extremities: no edema clubbing or cyanosis Skin: no rash or lesions Neurologic: no gross focal deficits Psych: appropriate behavior, appropriate mood, corporative, judgment intact - Constitutional Vitals: Temp Pulse Resp BP Pulse Ox 102.6 F H 109 H 20 116/81 99 08/21/17 03:24 08/20/17 23:24 08/21/17 03:24 08/21/17 03:24 08/20/17 23:24 Results - Labs CBC & Chem 7: 08/21/17 06:15 08/21/17 06:15 Labs: Laboratory Last Values WBC 13.1 K/mm3 (4.5-11.0) H 08/21/17 06:15 RBC 3.36 M/mm3 (3.65-5.03) L 08/21/17 06:15 Hgb 8.6 gm/dl (11.8-15.2) L 08/21/17 06:15 Hct 27.7 % (35.5-45.6) L 08/21/17 06:15 MCV 83 fl (84-94) L 08/21/17 06:15 MCH 26 pg (28-32) L 08/21/17 06:15 MCHC 31 % (32-34) L 08/21/17 06:15 RDW 23.6 % (13.2-15.2) H 08/21/17 06:15 Plt Count 359 K/mm3 (140-440) 08/21/17 06:15 Lymph % (Auto) 9.6 % (13.4-35.0) L 08/21/17 06:15 [place] % (Auto) 9.5 % (0.0-7.3) H 08/21/17 06:15 Eos % (Auto) 0.2 % (0.0-4.3) 08/21/17 06:15 Baso % (Auto) 0.9 % (0.0-1.8) 08/21/17 06:15 Lymph # 1.3 K/mm3 (1.2-5.4) 08/21/17 06:15 [place] # 1.2 K/mm3 (0.0-0.8) H 08/21/17 06:15 Eos # 0.0 K/mm3 (0.0-0.4) 08/21/17 06:15 Baso # 0.1 K/mm3 (0.0-0.1) 08/21/17 06:15 Add Manual Diff Complete 08/20/17 15:20 Total Counted 100 08/20/17 15:20 Seg Neutrophils % 79.8 % (40.0-70.0) H 08/21/17 06:15 Seg Neuts % (Manual) 93.0 % (40.0-70.0) H 08/20/17 15:20 Band Neutrophils % 0 % 08/20/17 15:20 Lymphocytes % (Manual) 2.0 % (13.4-35.0) L 08/20/17 15:20 Reactive Lymphs % (Man) 0 % 08/20/17 15:20 Monocytes % (Manual) 5.0 % (0.0-7.3) 08/20/17 15:20 Eosinophils % (Manual) 0 % (0.0-4.3) 08/20/17 15:20 Basophils % (Manual) 0 % (0.0-1.8) 08/20/17 15:20 Metamyelocytes % 0 % 08/20/17 15:20 Myelocytes % 0 % 08/20/17 15:20 Promyelocytes % 0 % 08/20/17 15:20 Blast Cells % 0 % 08/20/17 15:20 Nucleated RBC % Not Reportable 08/20/17 15:20 Seg Neutrophils # 10.4 K/mm3 (1.8-7.7) H 08/21/17 06:15 Seg Neutrophils # Man 11.3 K/mm3 (1.8-7.7) H 08/20/17 15:20 Band Neutrophils # 0.0 K/mm3 08/20/17 15:20 Lymphocytes # (Manual) 0.2 K/mm3 (1.2-5.4) L 08/20/17 15:20 Abs React Lymphs (Man) 0.0 K/mm3 08/20/17 15:20 Monocytes # (Manual) 0.6 K/mm3 (0.0-0.8) 08/20/17 15:20 Eosinophils # (Manual) 0.0 K/mm3 (0.0-0.4) 08/20/17 15:20 Basophils # (Manual) 0.0 K/mm3 (0.0-0.1) 08/20/17 15:20 Metamyelocytes # 0.0 K/mm3 08/20/17 15:20 Myelocytes # 0.0 K/mm3 08/20/17 15:20 Promyelocytes # 0.0 K/mm3 08/20/17 15:20 Blast Cells # 0.0 K/mm3 08/20/17 15:20 WBC Morphology Not Reportable 08/20/17 15:20 Hypersegmented Neuts Not Reportable 08/20/17 15:20 Hyposegmented Neuts Not Reportable 08/20/17 15:20 Hypogranular Neuts Not Reportable 08/20/17 15:20 Smudge Cells Not Reportable 08/20/17 15:20 Toxic Granulation Not Reportable 08/20/17 15:20 Toxic Vacuolation Not Reportable 08/20/17 15:20 Dohle Bodies Not Reportable 08/20/17 15:20 Pelger-Huet Anomaly Not Reportable 08/20/17 15:20 Aaron Rods Not Reportable 08/20/17 15:20 Platelet Estimate Appears normal 08/20/17 15:20 Clumped Platelets Not Reportable 08/20/17 15:20 Plt Clumps, EDTA Not Reportable 08/20/17 15:20 Large Platelets Not Reportable 08/20/17 15:20 Giant Platelets Not Reportable 08/20/17 15:20 Platelet Satelliting Not Reportable 08/20/17 15:20 Plt Morphology Comment Not Reportable 08/20/17 15:20 RBC Morphology Not Reportable 08/20/17 15:20 Dimorphic RBCs Not Reportable 08/20/17 15:20 Polychromasia Not Reportable 08/20/17 15:20 Hypochromasia Not Reportable 08/20/17 15:20 Poikilocytosis Few 08/20/17 15:20 Anisocytosis 1+ 08/20/17 15:20 Microcytosis Not Reportable 08/20/17 15:20 Macrocytosis Not Reportable 08/20/17 15:20 Spherocytes Not Reportable 08/20/17 15:20 Pappenheimer Bodies Not Reportable 08/20/17 15:20 Sickle Cells Not Reportable 08/20/17 15:20 Target Cells Not Reportable 08/20/17 15:20 Tear Drop Cells Not Reportable 08/20/17 15:20 Ovalocytes Few 08/20/17 15:20 Helmet Cells Not Reportable 08/20/17 15:20 Villanueva-Elsa Bodies Not Reportable 08/20/17 15:20 [place] Rings Not Reportable 08/20/17 15:20 Елена Cells Not Reportable 08/20/17 15:20 Bite Cells Not Reportable 08/20/17 15:20 Crenated Cell Not Reportable 08/20/17 15:20 Elliptocytes Few 08/20/17 15:20 Acanthocytes (Spur) Not Reportable 08/20/17 15:20 Rouleaux Not Reportable 08/20/17 15:20 Hemoglobin C Crystals Not Reportable 08/20/17 15:20 Schistocytes Not Reportable 08/20/17 15:20 Malaria parasites Not Reportable 08/20/17 15:20 Curly Bodies Not Reportable 08/20/17 15:20 Hem Pathologist Commnt No 08/20/17 15:20 Sodium 136 mmol/L (137-145) L 08/21/17 06:15 Potassium 4.5 mmol/L (3.6-5.0) 08/21/17 06:15 Chloride 103.4 mmol/L (98-107) 08/21/17 06:15 Carbon Dioxide 21 mmol/L (22-30) L 08/21/17 06:15 Anion Gap 16 mmol/L 08/21/17 06:15 BUN 11 mg/dL (9-20) 08/21/17 06:15 Creatinine 1.2 mg/dL (0.8-1.5) 08/21/17 06:15 Estimated GFR > 60 ml/min 08/21/17 06:15 BUN/Creatinine Ratio 9 % 08/21/17 06:15 Glucose 83 mg/dL (75-100) 08/21/17 06:15 Lactic Acid 2.50 mmol/L (0.7-2.0) H* 08/19/17 15:20 Calcium 7.4 mg/dL (8.4-10.2) L 08/21/17 06:15 Total Bilirubin 0.40 mg/dL (0.1-1.2) 08/21/17 06:15 Direct Bilirubin < 0.2 mg/dL (0-0.2) 08/21/17 06:15 AST 13 units/L (5-40) 08/21/17 06:15 ALT 8 units/L (7-56) 08/21/17 06:15 Alkaline Phosphatase 101 units/L (35-129) 08/21/17 06:15 C-Reactive Protein 7.50 mg/dL (0.00-1.30) H 08/20/17 15:20 Total Protein 6.0 g/dL (6.3-8.2) L 08/21/17 06:15 Albumin 1.8 g/dL (3.9-5) L 08/21/17 06:15 Albumin/Globulin Ratio 0.4 % 08/21/17 06:15 Urine Color Yellow (Yellow) 08/19/17 16:05 Urine Turbidity Clear (Clear) 08/19/17 16:05 Urine pH 5.0 (5.0-7.0) 08/19/17 16:05 Ur Specific [place] 1.014 (1.003-1.030) 08/19/17 16:05 Urine Protein <15 mg/dl mg/dL (Negative) 08/19/17 16:05 Urine Glucose (UA) Neg mg/dL (Negative) 08/19/17 16:05 Urine Ketones Neg mg/dL (Negative) 08/19/17 16:05 Urine Blood Neg (Negative) 08/19/17 16:05 Urine Nitrite Neg (Negative) 08/19/17 16:05 Urine Bilirubin Neg (Negative) 08/19/17 16:05 Urine Urobilinogen < 2.0 mg/dL (<2.0) 08/19/17 16:05 Ur Leukocyte Esterase Sm (Negative) 08/19/17 16:05 Urine WBC (Auto) 2.0 /HPF (0.0-6.0) 08/19/17 16:05 Urine RBC (Auto) 3.0 /HPF (0.0-6.0) 08/19/17 16:05 U Epithel Cells (Auto) 1.0 /HPF (0-13.0) 08/19/17 16:05 Urine Mucus Few /HPF 08/19/17 16:05 Blood Type B POSITIVE 08/19/17 16:45 Antibody Screen Negative 08/19/17 16:45 Crossmatch See Detail 08/19/17 16:45
[2017-08-21] MEDS: D5NS 1,000 ML IV SCH (12:13)
[2017-08-21] MEDS: TYLENOL PO PRN (18:08)
--- NOTE | 2017-08-21 20:28 | Gastroenterology Progress Note ---
Assessment and Plan - Patient Problems (1) Abnormal abdominal CT scan Current Visit: Yes Status: Acute Plan to address problem: - Complex hx complicated by the patient's inability to fully articulate his PMHx ; will attempt to get [facility] records. - Agree with ID that fevers and WBC, as well as CT appearance, could be abscesses, but also possible would be post-operative fluid collections especially with his low albumin, complex surgery and (I suspect) underlying IBD. - For now, would monitor cultures, continue empiric abx, and plan aspiration for culture of largest fluid pocket (on Tuesday; IR has been consulted). - May need surgical debridement, but would need to be transferred to primary surgeon, if infected. - I would avoid steroids at present, but elevated WBC, fevers, and abdominal pain may be from inflammed rectal stump (likely IBD versus diversion colitis). - More recs after aspiration completed. Subjective Date of service: 08/21/17 Principal diagnosis: Abdominal Abscesses Interval history: The patient is stable despite high fevers. He is eating OK, and no blood in the ostomy bag, no severe discharge from the rectal stump. Objective - Constitutional Vitals: Temp Pulse Resp BP Pulse Ox 102.9 F H 114 H 20 119/85 99 08/21/17 15:33 08/21/17 15:33 08/21/17 18:07 08/21/17 15:33 08/21/17 15:33 General appearance: no acute distress - Respiratory Respiratory effort: normal Respiratory: bilateral: CTA - Cardiovascular Rhythm: regular Heart Sounds: Present: S1 & S2 - Gastrointestinal General gastrointestinal: Present: soft, non-tender, non-distended, other ( Ostomy RLQ with liquid stool in bag) - Labs CBC & Chem 7: 08/21/17 06:15 08/21/17 06:15 Labs: Laboratory Results - last 24 hr 08/21/17 08/21/17 06:15 06:15 WBC 13.1 H RBC 3.36 L Hgb 8.6 L Hct 27.7 L MCV 83 L MCH 26 L MCHC 31 L RDW 23.6 H Plt Count 359 Lymph % (Auto) 9.[address] [place] % (Auto) 9.5 H Eos % (Auto) 0.2 Baso % (Auto) 0.9 Lymph # 1.3 [place] # 1.2 H Eos # 0.0 Baso # 0.1 Seg Neutrophils % 79.8 H Seg Neutrophils # 10.4 H Sodium 136 L Potassium 4.5 Chloride 103.4 Carbon Dioxide 21 L Anion Gap 16 BUN 11 Creatinine 1.2 Estimated GFR > 60 BUN/Creatinine Ratio 9 Glucose 83 Calcium 7.4 L Total Bilirubin 0.40 Direct Bilirubin < 0.2 AST 13 ALT 8 Alkaline Phosphatase 101 Total Protein 6.0 L Albumin 1.8 L Albumin/Globulin Ratio 0.4
[2017-08-22] MEDS: ZOSYN/NS 3.375GM/50ML 3.375 GM/50 ML BAG IV SCH ×5 (00:36→23:34)
[2017-08-22] MEDS: DILAUDID IV PRN ×7 (00:36→22:04)
[2017-08-22] MEDS: HEPARIN SUB-Q SCH ×3 (05:52→22:04)
--- NOTE | 2017-08-22 08:16 | Consultation ---
History of Present Illness - Reason for Consult Consult date: 08/22/17 - History of Present Illness 57 year old male s/p subtotal colectomy with RLQ ileostomy at [facility] last month. He presents here with abdominal pain and intermittent subjective fevers at home. CT scan was performed, and multiple intraabdominal fluid collections were demonstrated. Past History Past Medical History: other ("Ulcers in my bowels") Past Surgical History: bowel surgery (Subtotal colectomy with ileostomy 07/2018 at [facility]) Social history: smoking (quit smoking cigarettes, marijuana 3 months ago), alcohol abuse (quit 3 months ago), full code. denies: prescription drug abuse, IV drug use Family history: no significant family history Medications and Allergies Allergies Allergy/AdvReac Type Severity Reaction Status Date / Time No Known Allergies Allergy Unverified 08/19/17 14:51 Active Meds: Active Medications Acetaminophen (Tylenol) 650 mg PO Q6H PRN PRN Reason: Fever >101 Last Admin: 08/21/17 18:08 Dose: 650 mg Heparin Sodium (Porcine) (Heparin) 5,000 unit SUB-Q Q8HR [facility] Last Admin: 08/22/17 05:52 Dose: 5,000 unit Hydromorphone HCl (Dilaudid) 0.5 mg IV Q3H PRN PRN Reason: Pain , Severe (7-10) Last Admin: 08/22/17 03:59 Dose: 0.5 mg Piperacillin Sod/Tazobactam Sod (Zosyn/Ns 3.375gm/50ml) 3.375 gm in 50 mls @ 100 mls/hr IV Q6HR [facility] Last Admin: 08/22/17 05:52 Dose: 100 mls/hr Dextrose/Sodium Chloride (D5ns) 1,000 mls @ 100 mls/hr IV DIRECT [facility] Last Admin: 08/21/17 12:13 Dose: 100 mls/hr Fluconazole (Diflucan) 200 mg in 100 mls @ 100 mls/hr IV Q24HR [facility] PRN Reason: Protocol Last Admin: 08/21/17 10:16 Dose: 100 mls/hr Exam - Constitutional Vitals: Temp Pulse Resp BP Pulse Ox 100.6 F H 98 H 20 108/78 99 08/22/17 07:15 08/22/17 07:15 08/22/17 07:15 08/22/17 07:15 08/22/17 07:15 General appearance: Present: no acute distress, well-nourished - EENT ENT: hearing intact, clear oral mucosa - Neck Neck: Present: supple, normal ROM - Respiratory Respiratory effort: normal - Abdominal General gastrointestinal: Present: soft Localized gastrointestinal: tender: LUQ Results - Labs CBC & Chem 7: 08/21/17 06:15 08/21/17 06:15 - Imaging and Cardiology CT scan - abdomen: report reviewed, image reviewed Assessment and Plan There are multiple fluid collections on CT, so if these are the source of his fevers and pain, definitive management will most likely be surgical. I will plan on aspirating the largest fluid collection today (in the LUQ). Should culture results come back demonstrating infection, this may have to be addressed by the primary surgeon.
--- NOTE | 2017-08-22 08:36 | Gastroenterology Progress Note ---
Assessment and Plan - Patient Problems (1) Intra-abdominal abscess Current Visit: Yes Status: Acute Plan to address problem: The patient will be undergoing CT guided aspiration of the largest collection today. If infectious, surgical therapy, likely at [facility] will be the preferred approach. (2) Abdominal pain Current Visit: Yes Status: Acute Subjective Date of service: 08/22/17 Principal diagnosis: Abdominal Abscesses Interval history: The patient reports significant abdominal pain. Objective - Constitutional Vitals: Temp Pulse Resp BP Pulse Ox 100.6 F H 98 H 20 108/78 99 08/22/17 07:15 08/22/17 07:15 08/22/17 07:15 08/22/17 07:15 08/22/17 07:15 General appearance: no acute distress - EENT Eyes: PERRL, EOM intact - Neck Neck: supple, normal ROM - Respiratory Respiratory effort: normal Respiratory: bilateral: CTA - Cardiovascular Rhythm: regular - Gastrointestinal General gastrointestinal: Present: soft, non-tender, non-distended, normal bowel sounds, other (colostomy in LLQ. Brown stool in bag.) - Neurologic Neurological: alert and oriented x3 - Labs CBC & Chem 7: 08/21/17 06:15 08/21/17 06:15
[2017-08-22] MEDS: D5NS 1,000 ML IV SCH (09:11)
--- NOTE | 2017-08-22 09:21 | Progress Note ---
Assessment and Plan Assessment and plan: 57-year-old -[place] male with past medical history significant for colitis status post colectomy, colostomy bag presented to the emergency department because of complaints of generalized weakness, fever, and abdominal pain for the last 2 days. Patient had colectomy on July 12 at [place], pw abdominal pain and increased gas in colostomy bag, hg was 6.3 CT abd showed 3 collections- one largest at the left flank 7.4x3.2 cm with gas bubbles, another one at right liver lobe 5.5x2 cm and another one at right lower liver 2.4x1.8cm, also a rectal stump collection Sepsis/due to intraabdominal abscess/colitis -etiology is likely IBD -case dw ID, continue abx and antifungals Discussed with general surgeon, who recommends transfer the patient back to [place] where his surgeries were done, he'll most likely need extensive surgery- -IR for drainage of largest abscess today, 22ml of purulent fluid drained, but complex heterogenous collection was too thick to be tapped by IR, will need surgical management, continue abx for now, awaiting transfer planned for transfer back to [place], I have called daily, and they remain in diversion/saturation. Will call back again tomorrow Severe symptomatic anemia likely AOCD and acute blood loss -sp transfusion IBD? his clinical picture is most consistent with this may be the cause of his repeated inflammation and infections Severe malnutrition continue to encourage balanced diet, nutrition consult History Interval history: Review of systems Constitutional: He is having fevers, no malaise, no joint pains CVS: No chest pain, no orthopnea, no dyspnea on exertion, no pedal edema GI: Abdominal pain is improved. Respiratory: No shortness of breath, no wheezing, no coughing Hospitalist Physical - Physical exam Narrative exam: General.: Appears well, no distress, nontoxic, cachectic HEENT: Moist mucous membranes, extraocular muscles intact, no lymphadenopathy Neck: supple Cardiac: S1-S2 heard Lungs: clear to auscultation bilaterally Abdomen: Colostomy bag seen in right lower quadrant Extremities: no edema clubbing or cyanosis Skin: no rash or lesions Neurologic: no gross focal deficits Psych: appropriate behavior, appropriate mood, corporative, judgment intact - Constitutional Vitals: Temp Pulse Resp BP Pulse Ox 100.6 F H 98 H 20 108/78 99 08/22/17 07:15 08/22/17 07:15 08/22/17 08:50 08/22/17 07:15 08/22/17 07:15 Results - Labs CBC & Chem 7: 08/21/17 06:15 08/21/17 06:15 Labs: Laboratory Last Values WBC 13.1 K/mm3 (4.5-11.0) H 08/21/17 06:15 RBC 3.36 M/mm3 (3.65-5.03) L 08/21/17 06:15 Hgb 8.6 gm/dl (11.8-15.2) L 08/21/17 06:15 Hct 27.7 % (35.5-45.6) L 08/21/17 06:15 MCV 83 fl (84-94) L 08/21/17 06:15 MCH 26 pg (28-32) L 08/21/17 06:15 MCHC 31 % (32-34) L 08/21/17 06:15 RDW 23.6 % (13.2-15.2) H 08/21/17 06:15 Plt Count 359 K/mm3 (140-440) 08/21/17 06:15 Lymph % (Auto) 9.6 % (13.4-35.0) L 08/21/17 06:15 [place] % (Auto) 9.5 % (0.0-7.3) H 08/21/17 06:15 Eos % (Auto) 0.2 % (0.0-4.3) 08/21/17 06:15 Baso % (Auto) 0.9 % (0.0-1.8) 08/21/17 06:15 Lymph # 1.3 K/mm3 (1.2-5.4) 08/21/17 06:15 [place] # 1.2 K/mm3 (0.0-0.8) H 08/21/17 06:15 Eos # 0.0 K/mm3 (0.0-0.4) 08/21/17 06:15 Baso # 0.1 K/mm3 (0.0-0.1) 08/21/17 06:15 Add Manual Diff Complete 08/20/17 15:20 Total Counted 100 08/20/17 15:20 Seg Neutrophils % 79.8 % (40.0-70.0) H 08/21/17 06:15 Seg Neuts % (Manual) 93.0 % (40.0-70.0) H 08/20/17 15:20 Band Neutrophils % 0 % 08/20/17 15:20 Lymphocytes % (Manual) 2.0 % (13.4-35.0) L 08/20/17 15:20 Reactive Lymphs % (Man) 0 % 08/20/17 15:20 Monocytes % (Manual) 5.0 % (0.0-7.3) 08/20/17 15:20 Eosinophils % (Manual) 0 % (0.0-4.3) 08/20/17 15:20 Basophils % (Manual) 0 % (0.0-1.8) 08/20/17 15:20 Metamyelocytes % 0 % 08/20/17 15:20 Myelocytes % 0 % 08/20/17 15:20 Promyelocytes % 0 % 08/20/17 15:20 Blast Cells % 0 % 08/20/17 15:20 Nucleated RBC % Not Reportable 08/20/17 15:20 Seg Neutrophils # 10.4 K/mm3 (1.8-7.7) H 08/21/17 06:15 Seg Neutrophils # Man 11.3 K/mm3 (1.8-7.7) H 08/20/17 15:20 Band Neutrophils # 0.0 K/mm3 08/20/17 15:20 Lymphocytes # (Manual) 0.2 K/mm3 (1.2-5.4) L 08/20/17 15:20 Abs React Lymphs (Man) 0.0 K/mm3 08/20/17 15:20 Monocytes # (Manual) 0.6 K/mm3 (0.0-0.8) 08/20/17 15:20 Eosinophils # (Manual) 0.0 K/mm3 (0.0-0.4) 08/20/17 15:20 Basophils # (Manual) 0.0 K/mm3 (0.0-0.1) 08/20/17 15:20 Metamyelocytes # 0.0 K/mm3 08/20/17 15:20 Myelocytes # 0.0 K/mm3 08/20/17 15:20 Promyelocytes # 0.0 K/mm3 08/20/17 15:20 Blast Cells # 0.0 K/mm3 08/20/17 15:20 WBC Morphology Not Reportable 08/20/17 15:20 Hypersegmented Neuts Not Reportable 08/20/17 15:20 Hyposegmented Neuts Not Reportable 08/20/17 15:20 Hypogranular Neuts Not Reportable 08/20/17 15:20 Smudge Cells Not Reportable 08/20/17 15:20 Toxic Granulation Not Reportable 08/20/17 15:20 Toxic Vacuolation Not Reportable 08/20/17 15:20 Dohle Bodies Not Reportable 08/20/17 15:20 Pelger-Huet Anomaly Not Reportable 08/20/17 15:20 Aaron Rods Not Reportable 08/20/17 15:20 Platelet Estimate Appears normal 08/20/17 15:20 Clumped Platelets Not Reportable 08/20/17 15:20 Plt Clumps, EDTA Not Reportable 08/20/17 15:20 Large Platelets Not Reportable 08/20/17 15:20 Giant Platelets Not Reportable 08/20/17 15:20 Platelet Satelliting Not Reportable 08/20/17 15:20 Plt Morphology Comment Not Reportable 08/20/17 15:20 RBC Morphology Not Reportable 08/20/17 15:20 Dimorphic RBCs Not Reportable 08/20/17 15:20 Polychromasia Not Reportable 08/20/17 15:20 Hypochromasia Not Reportable 08/20/17 15:20 Poikilocytosis Few 08/20/17 15:20 Anisocytosis 1+ 08/20/17 15:20 Microcytosis Not Reportable 08/20/17 15:20 Macrocytosis Not Reportable 08/20/17 15:20 Spherocytes Not Reportable 08/20/17 15:20 Pappenheimer Bodies Not Reportable 08/20/17 15:20 Sickle Cells Not Reportable 08/20/17 15:20 Target Cells Not Reportable 08/20/17 15:20 Tear Drop Cells Not Reportable 08/20/17 15:20 Ovalocytes Few 08/20/17 15:20 Helmet Cells Not Reportable 08/20/17 15:20 Villanueva-Camargo Bodies Not Reportable 08/20/17 15:20 [place] Rings Not Reportable 08/20/17 15:20 Rembrandt Cells Not Reportable 08/20/17 15:20 Bite Cells Not Reportable 08/20/17 15:20 Crenated Cell Not Reportable 08/20/17 15:20 Elliptocytes Few 08/20/17 15:20 Acanthocytes (Spur) Not Reportable 08/20/17 15:20 Rouleaux Not Reportable 08/20/17 15:20 Hemoglobin C Crystals Not Reportable 08/20/17 15:20 Schistocytes Not Reportable 08/20/17 15:20 Malaria parasites Not Reportable 08/20/17 15:20 Curly Bodies Not Reportable 08/20/17 15:20 Hem Pathologist Commnt No 08/20/17 15:20 Sodium 136 mmol/L (137-145) L 08/21/17 06:15 Potassium 4.5 mmol/L (3.6-5.0) 08/21/17 06:15 Chloride 103.4 mmol/L (98-107) 08/21/17 06:15 Carbon Dioxide 21 mmol/L (22-30) L 08/21/17 06:15 Anion Gap 16 mmol/L 08/21/17 06:15 BUN 11 mg/dL (9-20) 08/21/17 06:15 Creatinine 1.2 mg/dL (0.8-1.5) 08/21/17 06:15 Estimated GFR > 60 ml/min 08/21/17 06:15 BUN/Creatinine Ratio 9 % 08/21/17 06:15 Glucose 83 mg/dL (75-100) 08/21/17 06:15 Lactic Acid 2.50 mmol/L (0.7-2.0) H* 08/19/17 15:20 Calcium 7.4 mg/dL (8.4-10.2) L 08/21/17 06:15 Total Bilirubin 0.40 mg/dL (0.1-1.2) 08/21/17 06:15 Direct Bilirubin < 0.2 mg/dL (0-0.2) 08/21/17 06:15 AST 13 units/L (5-40) 08/21/17 06:15 ALT 8 units/L (7-56) 08/21/17 06:15 Alkaline Phosphatase 101 units/L (35-129) 08/21/17 06:15 C-Reactive Protein 7.50 mg/dL (0.00-1.30) H 08/20/17 15:20 Total Protein 6.0 g/dL (6.3-8.2) L 08/21/17 06:15 Albumin 1.8 g/dL (3.9-5) L 08/21/17 06:15 Albumin/Globulin Ratio 0.4 % 08/21/17 06:15 Urine Color Yellow (Yellow) 08/19/17 16:05 Urine Turbidity Clear (Clear) 08/19/17 16:05 Urine pH 5.0 (5.0-7.0) 08/19/17 16:05 Ur Specific [place] 1.014 (1.003-1.030) 08/19/17 16:05 Urine Protein <15 mg/dl mg/dL (Negative) 08/19/17 16:05 Urine Glucose (UA) Neg mg/dL (Negative) 08/19/17 16:05 Urine Ketones Neg mg/dL (Negative) 08/19/17 16:05 Urine Blood Neg (Negative) 08/19/17 16:05 Urine Nitrite Neg (Negative) 08/19/17 16:05 Urine Bilirubin Neg (Negative) 08/19/17 16:05 Urine Urobilinogen < 2.0 mg/dL (<2.0) 08/19/17 16:05 Ur Leukocyte Esterase Sm (Negative) 08/19/17 16:05 Urine WBC (Auto) 2.0 /HPF (0.0-6.0) 08/19/17 16:05 Urine RBC (Auto) 3.0 /HPF (0.0-6.0) 08/19/17 16:05 U Epithel Cells (Auto) 1.0 /HPF (0-13.0) 08/19/17 16:05 Urine Mucus Few /HPF 08/19/17 16:05 Blood Type B POSITIVE 08/19/17 16:45 Antibody Screen Negative 08/19/17 16:45 Crossmatch See Detail 08/19/17 16:45
--- NOTE | 2017-08-22 12:26 | Operative Report ---
Operative Report Operative Report: Procedure: Ultrasound guided aspiration of an intraabdominal abscess Date: 08/22/2017 Indication: 57-year-old male status post partial colectomy with diverting ileostomy last month at [place]. He came to the hospital during this visit presenting with fevers and abdominal pain. CT revealed multiple intra-abdominal collections. Physician: Philippe Gusman MD Technique: The patient was placed in the left lateral decubitus position. The left upper quadrant was examined with ultrasound, and permanent images were acquired. The patient was prepped and draped in usual sterile fashion. A timeout was performed. Local anesthetic was administered. Under continuous ultrasound guidance, a 4 [place] Yueh catheter was advanced into the collection. After aspiration, an additional imaging was acquired. The catheter was withdrawn, and a dressing was placed. The patient tolerated the procedure without immediate complication. Results: The procedure yielded approximately 22 mL of purulent fluid, which was sent to the lab. The collection itself was complex, heterogeneous, with multiple echogenic foci. It is likely that the residual fluid in the collection was much too thick to be drained via a 4 [place] Yueh catheter. In any case, given the multiple collections, the resolution of his fevers and pain will likely have to be surgical.
--- NOTE | 2017-08-22 13:59 | Progress Note ---
Assessment and Plan Assessment: 1) Sepsis: still fever and leukcotyosis. Etiology most likely multiple intra- abdominal abscesses. 2) Multiple intra-abdominal abscesses: pt with recent colectomy/colostomy on 07/12/17 at [place]: -CT abd showed 3 collections- one largest at the left flank 7.4x3.2 cm with gas bubbles, another one at right liver lobe 5.5x2 cm and another one at right lower liver 2.4x1.8cm, also a rectal stump collection] -S/P IR drainage - 22 mL of purulent fluid, which was sent to the lab. The collection itself was complex, heterogeneous, with multiple echogenic foci. -crp=7.5 3) Presumed ulcerative colitis 4) Severe anemia Plan: -in view of complex loculated abscesses pt should be transfered to [place] to be eval by his primary surgical team -f/u IR cultures -continue zosyn AND fluconazole DAY [address] Elaine for your consultation, will follow up with you. Rita Bermudez MD Infectious Diseases Specialist [facility] ([facility]) M [phone] O [phone] Subjective Date of service: 08/22/17 Principal diagnosis: Abdominal Abscesses Interval history: Feels better still spiking 102.2 no compliants Microbiology: 08/21 blood cx neg Current Antimicrobials: Zosyn 08/20 Flucoanzole 08/20 Previous Antimicrobials: Objective - Exam Narrative Exam: General appearance: Alert in NAD, conversant / difficult exam pt non cooperative Eyes: anicteric sclerae, moist conjunctivae; no lid-lag; PERRLA HENT: Atraumatic; oropharynx clear with moist mucous membranes and no mucosal ulcerations/no oral thrush; normal hard and soft palate. Normal external ears. Neck: Trachea midline; supple, no thyromegaly or lymphadenopathy Lungs: CTA, with normal respiratory effort and no intercostal retractions CV: RRR, no murmurs Abdomen: tense + TTP diffusely, ostomy with loose stools Extremities: No peripheral edema or extremity lymphadenopathy Skin: Normal temperature, turgor and texture; no rash, ulcers or subcutaneous nodules Psych: Appropriate affect, alert and oriented to person, place and time. Neuro: alert and oriented x 3. Moving all extermities Lines: No CVL / PICC - Constitutional Vitals: Vital Signs Temp Pulse Resp BP Pulse Ox 100.6 F H 98 H 20 108/78 99 08/22/17 07:15 08/22/17 07:15 08/22/17 08:50 08/22/17 07:15 08/22/17 07:15 Temperature -Last 24 Hours Temperature 100.6 F Temperature 98.6 F Temperature 102.9 F - Labs CBC & Chem 7: 08/21/17 06:15 08/21/17 06:15
[2017-08-22] MEDS: DIFLUCAN 200 MG/100 ML BAG IV SCH ×2 (17:51→23:34)
[2017-08-23] MEDS: DILAUDID IV PRN ×7 (01:02→21:47)
[2017-08-23] MEDS: D5NS 1,000 ML IV SCH ×2 (04:01→15:00)
[2017-08-23] MEDS: HEPARIN SUB-Q SCH ×3 (06:31→21:53)
[2017-08-23] MEDS: ZOSYN/NS 3.375GM/50ML 3.375 GM/50 ML BAG IV SCH ×3 (06:31→17:33)
--- NOTE | 2017-08-23 10:47 | Gastroenterology Progress Note ---
<CAREN HOOVERAlex - Last Filed: 08/23/17 10:54> Assessment and Plan 1.intra-abdominal abscess 2.abd pain 3.sepsis -WBC 13.1 -Temp 99.2 -s/p Ultrasound guided aspiration of intrabdominal abscess yesterday- revealed multiple collections- 22mL of purulent fluid sent to lab with cultures pending -recommend transfer to [place] for evaluation by primary surgical team -continue supportive care -no further GI recommendations -will sign off Subjective Date of service: 08/23/17 Principal diagnosis: Abdominal Abscesses Interval history: Patient with continued abd pain rating 8 out of 10. No N/V. Tolerating diet. Objective - Constitutional Vitals: Temp Pulse Resp BP Pulse Ox 99.2 F 86 19 122/78 97 08/23/17 07:49 08/23/17 07:49 08/23/17 07:49 08/23/17 07:49 08/23/17 07:49 General appearance: no acute distress - Respiratory Respiratory: bilateral: CTA - Cardiovascular Rhythm: regular Heart Sounds: Present: S1 & S2 - Gastrointestinal General gastrointestinal: Present: soft, non-tender, non-distended, normal bowel sounds, other (Ostomy RLQ with liquid non-bloody stool in bag) - Neurologic Neurological: alert and oriented x3 - Labs CBC & Chem 7: 08/21/17 06:15 08/21/17 06:15 <FELICIANO DOMINGUEZ - Last Filed: 08/23/17 13:33> Assessment and Plan - Patient Problems (1) Intra-abdominal abscess Current Visit: Yes Status: Acute Plan to address problem: Patient was seen and examined. It appears he will need surgical care for the abscess. Will s/o and f/u PRN. Thank you for this consultation. Feliciano Dominguze MD (2) Abdominal pain Current Visit: Yes Status: Acute Objective - Constitutional Vitals: Temp Pulse Resp BP Pulse Ox 99.2 F 86 19 122/78 97 08/23/17 07:49 08/23/17 07:49 08/23/17 07:49 08/23/17 07:49 08/23/17 07:49 - Labs CBC & Chem 7: 08/21/17 06:15 08/21/17 06:15
--- NOTE | 2017-08-23 11:40 | Progress Note ---
Assessment and Plan Assessment: 1) Sepsis: still fever and leukcotyosis. Etiology most likely multiple intra- abdominal abscesses. 2) Multiple intra-abdominal abscesses: pt with recent colectomy/colostomy on 07/12/17 at [place]: -CT abd showed 3 collections- one largest at the left flank 7.4x3.2 cm with gas bubbles, another one at right liver lobe 5.5x2 cm and another one at right lower liver 2.4x1.8cm, also a rectal stump collection] -S/P IR drainage - Gram negative jacque growth. -crp=7.5 3) Presumed ulcerative colitis 4) Severe anemia Plan: -in view of complex loculated abscesses pt should be transfered to [place] to be eval by his primary surgical team -continue zosyn AND fluconazole DAY 4, duration to be determine -monitor fever Thank you Dr Elaine for your consultation, will follow up with you. Marina Holt NP-C for Dr. Rita Bermudez MD Infectious Diseases Specialist [facility] ([facility]) M [phone] O [phone] Subjective Date of service: 08/23/17 Principal diagnosis: Abdominal Abscesses Interval history: Microbiology: 08/21 blood cx neg peritoneal fluid culture showed gram negative jacque 08/22 Current Antimicrobials: Zosyn 08/20 Flucoanzole 08/20 Previous Antimicrobials: Objective - Exam Narrative Exam: General appearance: Alert in NAD, conversant Eyes: anicteric sclerae, moist conjunctivae; no lid-lag; PERRLA HENT: Atraumatic; oropharynx clear with moist mucous membranes Neck: Trachea midline; supple, no thyromegaly or lymphadenopathy Lungs: CTA CV: RRR, no murmurs Abdomen: tender with + TTP diffusely, ostomy with loose stools Extremities: No peripheral edema or extremity lymphadenopathy Skin: Normal temperature, turgor and texture; no rash, ulcers or subcutaneous nodules Psych: Appropriate affect, calm and cooperative Neuro: alert and oriented x 3. Moving all extermities Lines: No CVL / PICC - Constitutional Vitals: Vital Signs Temp Pulse Resp BP Pulse Ox 99.2 F 86 19 122/78 97 08/23/17 07:49 08/23/17 07:49 08/23/17 07:49 08/23/17 07:49 08/23/17 07:49 Temperature -Last 24 Hours Temperature 99.2 F Temperature 100.0 F Temperature 99.5 F - Labs CBC & Chem 7: 08/21/17 06:15 08/21/17 06:15
--- NOTE | 2017-08-23 12:51 | Progress Note ---
Assessment and Plan Assessment and plan: 57-year-old -Spanish male with past medical history significant for colitis status post colectomy, colostomy bag presented to the emergency department because of complaints of generalized weakness, fever, and abdominal pain for the last 2 days. Patient had colectomy on July 12 at [place], pw abdominal pain and increased gas in colostomy bag, hg was 6.3 CT abd showed 3 collections- one largest at the left flank 7.4x3.2 cm with gas bubbles, another one at right liver lobe 5.5x2 cm and another one at right lower liver 2.4x1.8cm, also a rectal stump collection Sepsis/due to intraabdominal abscess/colitis -etiology is likely IBD -case dw ID, continue abx and antifungals Discussed with general surgeon, who recommends transfer the patient back to [place] where his surgeries were done, he'll most likely need extensive surgery- -IR for drainage of largest abscess today, 22ml of purulent fluid drained, but complex heterogenous collection was too thick to be tapped by IR, will need surgical management, continue abx for now, awaiting transfer -fluid cx growing gram neg rods -planned for transfer back to [place], I have called daily, and they remain in diversion/saturation. Will call back again tomorrow Severe symptomatic anemia likely AOCD and acute blood loss -sp transfusion IBD? his clinical picture is most consistent with this may be the cause of his repeated inflammation and infections Severe malnutrition continue to encourage balanced diet, nutrition consult History Interval history: Review of systems Constitutional: He is having fevers, no malaise, no joint pains CVS: No chest pain, no orthopnea, no dyspnea on exertion, no pedal edema GI: Abdominal pain is improved. Respiratory: No shortness of breath, no wheezing, no coughing Hospitalist Physical - Physical exam Narrative exam: General.: Appears well, no distress, nontoxic, cachectic HEENT: Moist mucous membranes, extraocular muscles intact, no lymphadenopathy Neck: supple Cardiac: S1-S2 heard Lungs: clear to auscultation bilaterally Abdomen: Colostomy bag seen in right lower quadrant Extremities: no edema clubbing or cyanosis Skin: no rash or lesions Neurologic: no gross focal deficits Psych: appropriate behavior, appropriate mood, corporative, judgment intact - Constitutional Vitals: Temp Pulse Resp BP Pulse Ox 99.2 F 86 19 122/78 97 08/23/17 07:49 08/23/17 07:49 08/23/17 07:49 08/23/17 07:49 08/23/17 07:49 General appearance: Present: no acute distress, well-nourished Results - Labs CBC & Chem 7: 08/21/17 06:15 08/21/17 06:15 Labs: Laboratory Last Values WBC 13.1 K/mm3 (4.5-11.0) H 08/21/17 06:15 RBC 3.36 M/mm3 (3.65-5.03) L 08/21/17 06:15 Hgb 8.6 gm/dl (11.8-15.2) L 08/21/17 06:15 Hct 27.7 % (35.5-45.6) L 08/21/17 06:15 MCV 83 fl (84-94) L 08/21/17 06:15 MCH 26 pg (28-32) L 08/21/17 06:15 MCHC 31 % (32-34) L 08/21/17 06:15 RDW 23.6 % (13.2-15.2) H 08/21/17 06:15 Plt Count 359 K/mm3 (140-440) 08/21/17 06:15 Lymph % (Auto) 9.6 % (13.4-35.0) L 08/21/17 06:15 [place] % (Auto) 9.5 % (0.0-7.3) H 08/21/17 06:15 Eos % (Auto) 0.2 % (0.0-4.3) 08/21/17 06:15 Baso % (Auto) 0.9 % (0.0-1.8) 08/21/17 06:15 Lymph # 1.3 K/mm3 (1.2-5.4) 08/21/17 06:15 [place] # 1.2 K/mm3 (0.0-0.8) H 08/21/17 06:15 Eos # 0.0 K/mm3 (0.0-0.4) 08/21/17 06:15 Baso # 0.1 K/mm3 (0.0-0.1) 08/21/17 06:15 Add Manual Diff Complete 08/20/17 15:20 Total Counted 100 08/20/17 15:20 Seg Neutrophils % 79.8 % (40.0-70.0) H 08/21/17 06:15 Seg Neuts % (Manual) 93.0 % (40.0-70.0) H 08/20/17 15:20 Band Neutrophils % 0 % 08/20/17 15:20 Lymphocytes % (Manual) 2.0 % (13.4-35.0) L 08/20/17 15:20 Reactive Lymphs % (Man) 0 % 08/20/17 15:20 Monocytes % (Manual) 5.0 % (0.0-7.3) 08/20/17 15:20 Eosinophils % (Manual) 0 % (0.0-4.3) 08/20/17 15:20 Basophils % (Manual) 0 % (0.0-1.8) 08/20/17 15:20 Metamyelocytes % 0 % 08/20/17 15:20 Myelocytes % 0 % 08/20/17 15:20 Promyelocytes % 0 % 08/20/17 15:20 Blast Cells % 0 % 08/20/17 15:20 Nucleated RBC % Not Reportable 08/20/17 15:20 Seg Neutrophils # 10.4 K/mm3 (1.8-7.7) H 08/21/17 06:15 Seg Neutrophils # Man 11.3 K/mm3 (1.8-7.7) H 08/20/17 15:20 Band Neutrophils # 0.0 K/mm3 08/20/17 15:20 Lymphocytes # (Manual) 0.2 K/mm3 (1.2-5.4) L 08/20/17 15:20 Abs React Lymphs (Man) 0.0 K/mm3 08/20/17 15:20 Monocytes # (Manual) 0.6 K/mm3 (0.0-0.8) 08/20/17 15:20 Eosinophils # (Manual) 0.0 K/mm3 (0.0-0.4) 08/20/17 15:20 Basophils # (Manual) 0.0 K/mm3 (0.0-0.1) 08/20/17 15:20 Metamyelocytes # 0.0 K/mm3 08/20/17 15:20 Myelocytes # 0.0 K/mm3 08/20/17 15:20 Promyelocytes # 0.0 K/mm3 08/20/17 15:20 Blast Cells # 0.0 K/mm3 08/20/17 15:20 WBC Morphology Not Reportable 08/20/17 15:20 Hypersegmented Neuts Not Reportable 08/20/17 15:20 Hyposegmented Neuts Not Reportable 08/20/17 15:20 Hypogranular Neuts Not Reportable 08/20/17 15:20 Smudge Cells Not Reportable 08/20/17 15:20 Toxic Granulation Not Reportable 08/20/17 15:20 Toxic Vacuolation Not Reportable 08/20/17 15:20 Dohle Bodies Not Reportable 08/20/17 15:20 Pelger-Huet Anomaly Not Reportable 08/20/17 15:20 Aaron Rods Not Reportable 08/20/17 15:20 Platelet Estimate Appears normal 08/20/17 15:20 Clumped Platelets Not Reportable 08/20/17 15:20 Plt Clumps, EDTA Not Reportable 08/20/17 15:20 Large Platelets Not Reportable 08/20/17 15:20 Giant Platelets Not Reportable 08/20/17 15:20 Platelet Satelliting Not Reportable 08/20/17 15:20 Plt Morphology Comment Not Reportable 08/20/17 15:20 RBC Morphology Not Reportable 08/20/17 15:20 Dimorphic RBCs Not Reportable 08/20/17 15:20 Polychromasia Not Reportable 08/20/17 15:20 Hypochromasia Not Reportable 08/20/17 15:20 Poikilocytosis Few 08/20/17 15:20 Anisocytosis 1+ 08/20/17 15:20 Microcytosis Not Reportable 08/20/17 15:20 Macrocytosis Not Reportable 08/20/17 15:20 Spherocytes Not Reportable 08/20/17 15:20 Pappenheimer Bodies Not Reportable 08/20/17 15:20 Sickle Cells Not Reportable 08/20/17 15:20 Target Cells Not Reportable 08/20/17 15:20 Tear Drop Cells Not Reportable 08/20/17 15:20 Ovalocytes Few 08/20/17 15:20 Helmet Cells Not Reportable 08/20/17 15:20 [place] Bodies Not Reportable 08/20/17 15:20 [place] Rings Not Reportable 08/20/17 15:20 Елена Cells Not Reportable 08/20/17 15:20 Bite Cells Not Reportable 08/20/17 15:20 Crenated Cell Not Reportable 08/20/17 15:20 Elliptocytes Few 08/20/17 15:20 Acanthocytes (Spur) Not Reportable 08/20/17 15:20 Rouleaux Not Reportable 08/20/17 15:20 Hemoglobin C Crystals Not Reportable 08/20/17 15:20 Schistocytes Not Reportable 08/20/17 15:20 Malaria parasites Not Reportable 08/20/17 15:20 Curly Bodies Not Reportable 08/20/17 15:20 Hem Pathologist Commnt No 08/20/17 15:20 Sodium 136 mmol/L (137-145) L 08/21/17 06:15 Potassium 4.5 mmol/L (3.6-5.0) 08/21/17 06:15 Chloride 103.4 mmol/L (98-107) 08/21/17 06:15 Carbon Dioxide 21 mmol/L (22-30) L 08/21/17 06:15 Anion Gap 16 mmol/L 08/21/17 06:15 BUN 11 mg/dL (9-20) 08/21/17 06:15 Creatinine 1.2 mg/dL (0.8-1.5) 08/21/17 06:15 Estimated GFR > 60 ml/min 08/21/17 06:15 BUN/Creatinine Ratio 9 % 08/21/17 06:15 Glucose 83 mg/dL (75-100) 08/21/17 06:15 Lactic Acid 2.50 mmol/L (0.7-2.0) H* 08/19/17 15:20 Calcium 7.4 mg/dL (8.4-10.2) L 08/21/17 06:15 Total Bilirubin 0.40 mg/dL (0.1-1.2) 08/21/17 06:15 Direct Bilirubin < 0.2 mg/dL (0-0.2) 08/21/17 06:15 AST 13 units/L (5-40) 08/21/17 06:15 ALT 8 units/L (7-56) 08/21/17 06:15 Alkaline Phosphatase 101 units/L (35-129) 08/21/17 06:15 C-Reactive Protein 7.50 mg/dL (0.00-1.30) H 08/20/17 15:20 Total Protein 6.0 g/dL (6.3-8.2) L 08/21/17 06:15 Albumin 1.8 g/dL (3.9-5) L 08/21/17 06:15 Albumin/Globulin Ratio 0.4 % 08/21/17 06:15 Urine Color Yellow (Yellow) 08/19/17 16:05 Urine Turbidity Clear (Clear) 08/19/17 16:05 Urine pH 5.0 (5.0-7.0) 08/19/17 16:05 Ur Specific [place] 1.014 (1.003-1.030) 08/19/17 16:05 Urine Protein <15 mg/dl mg/dL (Negative) 08/19/17 16:05 Urine Glucose (UA) Neg mg/dL (Negative) 08/19/17 16:05 Urine Ketones Neg mg/dL (Negative) 08/19/17 16:05 Urine Blood Neg (Negative) 08/19/17 16:05 Urine Nitrite Neg (Negative) 08/19/17 16:05 Urine Bilirubin Neg (Negative) 08/19/17 16:05 Urine Urobilinogen < 2.0 mg/dL (<2.0) 08/19/17 16:05 Ur Leukocyte Esterase Sm (Negative) 08/19/17 16:05 Urine WBC (Auto) 2.0 /HPF (0.0-6.0) 08/19/17 16:05 Urine RBC (Auto) 3.0 /HPF (0.0-6.0) 08/19/17 16:05 U Epithel Cells (Auto) 1.0 /HPF (0-13.0) 08/19/17 16:05 Urine Mucus Few /HPF 08/19/17 16:05 Blood Type B POSITIVE 08/19/17 16:45 Antibody Screen Negative 08/19/17 16:45 Crossmatch See Detail 08/19/17 16:45
[2017-08-23] MEDS: DIFLUCAN 200 MG/100 ML BAG IV SCH (21:43)
[2017-08-23] MEDS: TYLENOL PO PRN (21:50)
[2017-08-24] MEDS: ZOSYN/NS 3.375GM/50ML 3.375 GM/50 ML BAG IV SCH ×4 (00:56→19:19)
[2017-08-24] MEDS: DILAUDID IV PRN ×7 (00:57→23:06)
[2017-08-24] MEDS: D5NS 1,000 ML IV SCH ×2 (04:22→15:11)
[2017-08-24] MEDS: HEPARIN SUB-Q SCH ×3 (07:43→23:07)
--- NOTE | 2017-08-24 14:06 | Progress Note ---
Assessment and Plan Assessment and plan: 57-year-old -[place] male with past medical history significant for colitis status post colectomy with colostomy bag presented to the emergency department with generalized weakness, fever, and abdominal pain of 2 days duration. Patient had colectomy on July 12 at [place], has abdominal pain and increased gas in colostomy bag, hg was 6.3 CT abd showed 3 collections- one largest at the left flank 7.4x3.2 cm with gas bubbles, another one at right liver lobe 5.5x2 cm and another one at right lower liver 2.4x1.8cm, also a rectal stump collection Sepsis/due to intraabdominal abscess/colitis -continue IV Zosyn and Diflucan -IR performed ultrasound-guided aspiration ,22ml of purulent fluid drained, complex heterogenous collection was too thick to aspirate by IR, may need surgical intervention -fluid cultures positive for gram neg rods, follow sensitivities and adjust antibiotics as needed -transfer back to [place], called and discussed with Dr. Cassie Ardon, colorectal surgeon Severe symptomatic anemia requiring blood transfusion -sp transfusion, hemoglobin improved from 6.3 - 8.6 Closely monitor H&H and transfuse as needed, s/p colectomy /colostomy ostomy care Severe malnutrition/hypoalbuminemia Supportive care, nutrition supplements as needed DVT prophylaxis; SCDs/heparin Disposition; transfer to [facility] care off colorectal surgeon Dr. Cassie Ardon and bed is available Plan of care discussed with the patient and his nurse History Interval history: Patient seen and evaluated this morning medical records reviewed Patient feels better, awaiting transfer to [facility], as patient's surgeons are at [facility] [place] tried to transfer the patient to [facility], however [facility] was in diversion. Patient afebrile, alert awake oriented 3 Not in acute distress Hospitalist Physical - Constitutional Vitals: Temp Pulse Resp BP Pulse Ox 99.4 F 74 18 120/80 100 08/24/17 08:28 08/24/17 08:28 08/24/17 08:28 08/24/17 08:28 08/24/17 08:28 General appearance: Present: no acute distress, well-nourished - EENT Eyes: Present: PERRL, EOM intact - Neck Neck: Present: supple, normal ROM - Respiratory Respiratory effort: normal Respiratory: bilateral: diminished, negative: rales, rhonchi, wheezing - Cardiovascular Rhythm: regular Heart Sounds: Present: S1 & S2 - Extremities Extremities: no ischemia, No edema - Abdominal General gastrointestinal: soft, tender, other (colostomy in place) - Integumentary Integumentary: Present: clear, warm - Psychiatric Psychiatric: appropriate mood/affect, cooperative - Neurologic Neurologic: CNII-XII intact, moves all extremities Results - Labs CBC & Chem 7: 08/21/17 06:15 08/21/17 06:15 Labs: Laboratory Last Values WBC 13.1 K/mm3 (4.5-11.0) H 08/21/17 06:15 RBC 3.36 M/mm3 (3.65-5.03) L 08/21/17 06:15 Hgb 8.6 gm/dl (11.8-15.2) L 08/21/17 06:15 Hct 27.7 % (35.5-45.6) L 08/21/17 06:15 MCV 83 fl (84-94) L 08/21/17 06:15 MCH 26 pg (28-32) L 08/21/17 06:15 MCHC 31 % (32-34) L 08/21/17 06:15 RDW 23.6 % (13.2-15.2) H 08/21/17 06:15 Plt Count 359 K/mm3 (140-440) 08/21/17 06:15 Lymph % (Auto) 9.6 % (13.4-35.0) L 08/21/17 06:15 [place] % (Auto) 9.5 % (0.0-7.3) H 08/21/17 06:15 Eos % (Auto) 0.2 % (0.0-4.3) 08/21/17 06:15 Baso % (Auto) 0.9 % (0.0-1.8) 08/21/17 06:15 Lymph # 1.3 K/mm3 (1.2-5.4) 08/21/17 06:15 [place]bud # 1.2 K/mm3 (0.0-0.8) H 08/21/17 06:15 Eos # 0.0 K/mm3 (0.0-0.4) 08/21/17 06:15 Baso # 0.1 K/mm3 (0.0-0.1) 08/21/17 06:15 Add Manual Diff Complete 08/20/17 15:20 Total Counted 100 08/20/17 15:20 Seg Neutrophils % 79.8 % (40.0-70.0) H 08/21/17 06:15 Seg Neuts % (Manual) 93.0 % (40.0-70.0) H 08/20/17 15:20 Band Neutrophils % 0 % 08/20/17 15:20 Lymphocytes % (Manual) 2.0 % (13.4-35.0) L 08/20/17 15:20 Reactive Lymphs % (Man) 0 % 08/20/17 15:20 Monocytes % (Manual) 5.0 % (0.0-7.3) 08/20/17 15:20 Eosinophils % (Manual) 0 % (0.0-4.3) 08/20/17 15:20 Basophils % (Manual) 0 % (0.0-1.8) 08/20/17 15:20 Metamyelocytes % 0 % 08/20/17 15:20 Myelocytes % 0 % 08/20/17 15:20 Promyelocytes % 0 % 08/20/17 15:20 Blast Cells % 0 % 08/20/17 15:20 Nucleated RBC % Not Reportable 08/20/17 15:20 Seg Neutrophils # 10.4 K/mm3 (1.8-7.7) H 08/21/17 06:15 Seg Neutrophils # Man 11.3 K/mm3 (1.8-7.7) H 08/20/17 15:20 Band Neutrophils # 0.0 K/mm3 08/20/17 15:20 Lymphocytes # (Manual) 0.2 K/mm3 (1.2-5.4) L 08/20/17 15:20 Abs React Lymphs (Man) 0.0 K/mm3 08/20/17 15:20 Monocytes # (Manual) 0.6 K/mm3 (0.0-0.8) 08/20/17 15:20 Eosinophils # (Manual) 0.0 K/mm3 (0.0-0.4) 08/20/17 15:20 Basophils # (Manual) 0.0 K/mm3 (0.0-0.1) 08/20/17 15:20 Metamyelocytes # 0.0 K/mm3 08/20/17 15:20 Myelocytes # 0.0 K/mm3 08/20/17 15:20 Promyelocytes # 0.0 K/mm3 08/20/17 15:20 Blast Cells # 0.0 K/mm3 08/20/17 15:20 WBC Morphology Not Reportable 08/20/17 15:20 Hypersegmented Neuts Not Reportable 08/20/17 15:20 Hyposegmented Neuts Not Reportable 08/20/17 15:20 Hypogranular Neuts Not Reportable 08/20/17 15:20 Smudge Cells Not Reportable 08/20/17 15:20 Toxic Granulation Not Reportable 08/20/17 15:20 Toxic Vacuolation Not Reportable 08/20/17 15:20 Dohle Bodies Not Reportable 08/20/17 15:20 Pelger-Huet Anomaly Not Reportable 08/20/17 15:20 Aaron Rods Not Reportable 08/20/17 15:20 Platelet Estimate Appears normal 08/20/17 15:20 Clumped Platelets Not Reportable 08/20/17 15:20 Plt Clumps, EDTA Not Reportable 08/20/17 15:20 Large Platelets Not Reportable 08/20/17 15:20 Giant Platelets Not Reportable 08/20/17 15:20 Platelet Satelliting Not Reportable 08/20/17 15:20 Plt Morphology Comment Not Reportable 08/20/17 15:20 RBC Morphology Not Reportable 08/20/17 15:20 Dimorphic RBCs Not Reportable 08/20/17 15:20 Polychromasia Not Reportable 08/20/17 15:20 Hypochromasia Not Reportable 08/20/17 15:20 Poikilocytosis Few 08/20/17 15:20 Anisocytosis 1+ 08/20/17 15:20 Microcytosis Not Reportable 08/20/17 15:20 Macrocytosis Not Reportable 08/20/17 15:20 Spherocytes Not Reportable 08/20/17 15:20 Pappenheimer Bodies Not Reportable 08/20/17 15:20 Sickle Cells Not Reportable 08/20/17 15:20 Target Cells Not Reportable 08/20/17 15:20 Tear Drop Cells Not Reportable 08/20/17 15:20 Ovalocytes Few 08/20/17 15:20 Helmet Cells Not Reportable 08/20/17 15:20 [place] Bodies Not Reportable 08/20/17 15:20 Lyons Rings Not Reportable 08/20/17 15:20 Елена Cells Not Reportable 08/20/17 15:20 Bite Cells Not Reportable 08/20/17 15:20 Crenated Cell Not Reportable 08/20/17 15:20 Elliptocytes Few 08/20/17 15:20 Acanthocytes (Spur) Not Reportable 08/20/17 15:20 Rouleaux Not Reportable 08/20/17 15:20 Hemoglobin C Crystals Not Reportable 08/20/17 15:20 Schistocytes Not Reportable 08/20/17 15:20 Malaria parasites Not Reportable 08/20/17 15:20 Curly Bodies Not Reportable 08/20/17 15:20 Hem Pathologist Commnt No 08/20/17 15:20 Sodium 136 mmol/L (137-145) L 08/21/17 06:15 Potassium 4.5 mmol/L (3.6-5.0) 08/21/17 06:15 Chloride 103.4 mmol/L (98-107) 08/21/17 06:15 Carbon Dioxide 21 mmol/L (22-30) L 08/21/17 06:15 Anion Gap 16 mmol/L 08/21/17 06:15 BUN 11 mg/dL (9-20) 08/21/17 06:15 Creatinine 1.2 mg/dL (0.8-1.5) 08/21/17 06:15 Estimated GFR > 60 ml/min 08/21/17 06:15 BUN/Creatinine Ratio 9 % 08/21/17 06:15 Glucose 83 mg/dL (75-100) 08/21/17 06:15 Lactic Acid 2.50 mmol/L (0.7-2.0) H* 08/19/17 15:20 Calcium 7.4 mg/dL (8.4-10.2) L 08/21/17 06:15 Total Bilirubin 0.40 mg/dL (0.1-1.2) 08/21/17 06:15 Direct Bilirubin < 0.2 mg/dL (0-0.2) 08/21/17 06:15 AST 13 units/L (5-40) 08/21/17 06:15 ALT 8 units/L (7-56) 08/21/17 06:15 Alkaline Phosphatase 101 units/L (35-129) 08/21/17 06:15 C-Reactive Protein 7.50 mg/dL (0.00-1.30) H 08/20/17 15:20 Total Protein 6.0 g/dL (6.3-8.2) L 08/21/17 06:15 Albumin 1.8 g/dL (3.9-5) L 08/21/17 06:15 Albumin/Globulin Ratio 0.4 % 08/21/17 06:15 Urine Color Yellow (Yellow) 08/19/17 16:05 Urine Turbidity Clear (Clear) 08/19/17 16:05 Urine pH 5.0 (5.0-7.0) 08/19/17 16:05 Ur Specific [place] 1.014 (1.003-1.030) 08/19/17 16:05 Urine Protein <15 mg/dl mg/dL (Negative) 08/19/17 16:05 Urine Glucose (UA) Neg mg/dL (Negative) 08/19/17 16:05 Urine Ketones Neg mg/dL (Negative) 08/19/17 16:05 Urine Blood Neg (Negative) 08/19/17 16:05 Urine Nitrite Neg (Negative) 08/19/17 16:05 Urine Bilirubin Neg (Negative) 08/19/17 16:05 Urine Urobilinogen < 2.0 mg/dL (<2.0) 08/19/17 16:05 Ur Leukocyte Esterase Sm (Negative) 08/19/17 16:05 Urine WBC (Auto) 2.0 /HPF (0.0-6.0) 08/19/17 16:05 Urine RBC (Auto) 3.0 /HPF (0.0-6.0) 08/19/17 16:05 U Epithel Cells (Auto) 1.0 /HPF (0-13.0) 08/19/17 16:05 Urine Mucus Few /HPF 08/19/17 16:05 Blood Type B POSITIVE 08/19/17 16:45 Antibody Screen Negative 08/19/17 16:45 Crossmatch See Detail 08/19/17 16:45
--- NOTE | 2017-08-24 14:34 | Progress Note ---
Assessment and Plan Assessment: 1) Sepsis: still fever and leukcotyosis. Etiology most likely multiple intra- abdominal abscesses. 2) Multiple intra-abdominal abscesses: pt with recent colectomy/colostomy on 07/12/17 at [place]: -CT abd showed 3 collections- one largest at the left flank 7.4x3.2 cm with gas bubbles, another one at right liver lobe 5.5x2 cm and another one at right lower liver 2.4x1.8cm, also a rectal stump collection] -S/P IR drainage - 22 mL of purulent fluid, which was sent to the lab. The collection itself was complex, heterogeneous, with multiple echogenic foci. -crp=7.5 -IR drainage +GNRs 3) Presumed ulcerative colitis 4) Severe anemia Plan: -in view of uncontrolled sepsis and complex loculated abscesses pt should be transfered to [place] to be eval by his primary surgical team -f/u IR cultures -continue zosyn DAY 5 -duration to be determined -stop fluconazole - no evidence of fungal infection Thank you Dr Elaine for your consultation, will follow up with you. Rita Bermudez MD Infectious Diseases Specialist [facility] [phone] Subjective Date of service: 08/24/17 Principal diagnosis: Abdominal Abscesses Interval history: Feels better still fever and abd pain 03/17 Microbiology: 08/21 blood cx neg 08/22 IR drainage +GNRs Current Antimicrobials: Zosyn 08/20 Flucoanzole 08/20 Previous Antimicrobials: Objective - Exam Narrative Exam: General appearance: Alert in NAD, conversant / difficult exam pt non cooperative Eyes: anicteric sclerae, moist conjunctivae; no lid-lag; PERRLA HENT: Atraumatic; oropharynx clear with moist mucous membranes and no mucosal ulcerations/no oral thrush; normal hard and soft palate. Normal external ears. Neck: Trachea midline; supple, no thyromegaly or lymphadenopathy Lungs: CTA, with normal respiratory effort and no intercostal retractions CV: RRR, no murmurs Abdomen: tense + TTP diffusely, ostomy with loose stools Extremities: No peripheral edema or extremity lymphadenopathy Skin: Normal temperature, turgor and texture; no rash, ulcers or subcutaneous nodules Psych: Appropriate affect, alert and oriented to person, place and time. Neuro: alert and oriented x 3. Moving all extermities Lines: No CVL / PICC - Constitutional Vitals: Vital Signs Temp Pulse Resp BP Pulse Ox 99.4 F 74 18 120/80 100 08/24/17 08:28 08/24/17 08:28 08/24/17 08:28 08/24/17 08:28 08/24/17 08:28 Temperature -Last 24 Hours Temperature 99.4 F Temperature 101.2 F Temperature 99.9 F - Labs CBC & Chem 7: 08/21/17 06:15 08/21/17 06:15
--- NOTE | 2017-08-24 18:09 | Discharge Summary ---
Providers - Providers Date of Admission: 08/19/17 22:31 Date of discharge: 08/24/17 Attending physician: DARIANA MINOR 08/19/17 22:36 Consult to Physician [CONS] Routine Consulting Provider: SUKHWINDER DOMINGUEZ Reason For Exam: colitis s/p colectomy Place consult to:: yoly wong/DR. INFANTE Notified:: Manju Phone number called:: [phone] Was contact made?: Yes If yes, spoke with:: AKBAR Time called:: 10:00 Comment:: NATHALY NOTIFIED 08/19/17 22:38 Consult to Physician [CONS] Routine Consulting Provider: VICTORINA ALICIA Reason For Exam: s/p colectomy Place consult to:: surgery Notified:: Phone number called:: Was contact made?: Yes If yes, spoke with:: dr alicia Time called:: 12:19 08/20/17 03:44 Consult to Dietitian/Nutrition [CONS] Routine Physician Instructions: Reason For Exam: Reason for Consult: Malnutrition 08/20/17 10:59 Consult to Physician [CONS] Routine Consulting Provider: BELL MIRANDA Reason For Exam: intra-abdominal abscesses Place consult to:: DR. Acevedo Notified:: DR. Akins Phone number called:: [phone] Was contact made?: Yes If yes, spoke with:: DR. Akins Time called:: 13:23 08/21/17 13:46 Consult to Interventional Radiology [CONS] Routine Consulting Provider: PREETHI FISHER Reason For Exam: intra-abdominal abscess Place consult to:: MONICA Mcgrath Notified:: MONICA Mcgrath Phone number called:: IN HOUSE Was contact made?: Yes If yes, spoke with:: MONICA Time called:: 09:06 Primary care physician: CARBON BRUSH MAKER Hospitalization Reason for admission: abdominal pain/fever Condition: Serious Pertinent studies: CT abd showed 3 collections- one largest at the left flank 7.4x3.2 cm with gas bubbles, another one at right liver lobe 5.5x2 cm and another one at right lower liver 2.4x1.8cm, also a rectal stump collection Ultrasound-guided aspiration of abdominal abscess Hospital course: 57-year-old -[place] male with past medical history significant for colitis status post colectomy with colostomy bag presented to the emergency department with generalized weakness, fever, and abdominal pain of 2 days duration. Patient had colectomy on July 12 at [place], has abdominal pain and increased gas in colostomy bag, hg was 6.3 Discharge diagnosis and management: Sepsis/due to intraabdominal abscess/colitis -continue IV Zosyn and Diflucan -IR performed ultrasound-guided aspiration ,22ml of purulent fluid drained, complex heterogenous collection was too thick to aspirate by IR, may need surgical intervention -fluid cultures positive for gram neg rods, follow sensitivities and adjust antibiotics as needed -transfer back to [place], called and discussed with Dr. Cassie Ardon, colorectal surgeon Severe symptomatic anemia requiring blood transfusion -sp transfusion, hemoglobin improved from 6.3 - 8.6 Closely monitor H&H and transfuse as needed, s/p colectomy /colostomy ostomy care Severe malnutrition/hypoalbuminemia Supportive care, nutrition supplements as needed DVT prophylaxis; SCDs/heparin Disposition; transfer to [facility] care of colorectal surgeon Dr. Cassie Ardon, for further evaluation and management Disposition: DC/TX-70 ANOTHER TYPE [facility]THCARE Time spent for discharge: 35 min Core Measure Documentation - Palliative Care Palliative Care/ Comfort Measures: Not Applicable - Core Measures Any of the following diagnoses?: none Exam - Constitutional Vitals: Temp Pulse Resp BP Pulse Ox 99.7 F H 80 16 125/81 100 08/24/17 16:32 08/24/17 16:32 08/24/17 16:32 08/24/17 16:32 08/24/17 16:32 General appearance: Present: no acute distress, well-nourished - EENT Eyes: Present: PERRL, EOM intact - Neck Neck: Present: supple, normal ROM - Respiratory Respiratory effort: normal Respiratory: bilateral: diminished, negative: rales, rhonchi, wheezing - Cardiovascular Rhythm: regular Heart Sounds: Present: S1 & S2 - Extremities Extremities: no ischemia, No edema - Abdominal General gastrointestinal: Present: soft, non-tender, non-distended, normal bowel sounds, other (ostomy in place) - Integumentary Integumentary: Present: clear, warm - Musculoskeletal Musculoskeletal: strength equal bilaterally - Psychiatric Psychiatric: appropriate mood/affect, cooperative - Neurologic Neurologic: CNII-XII intact, moves all extremities Plan Activity: advance as tolerated Diet: other (npo) Additional Instructions: Transfer to [facility], under the care of Dr. Cassie Ardon[colorectal surgeon] for further evaluation and management Follow up with: PRIMARY CARE, [Primary Care Provider] - 3-5 Days
--- NOTE | 2017-08-24 19:58 | Progress Note ---
Subjective Narrative: Dr Nava talked to the surgeon at [place] , he will trnsfer Pt to his service in AM , Objective Vital Signs - 12hr 08/24/17 08/24/17 08:28 16:32 Temperature 99.4 F 99.7 F H Pulse Rate 74 80 Respiratory 18 16 Rate Blood Pressure 120/80 125/81 O2 Sat by Pulse 100 100 Oximetry - Labs 08/21/17 06:15 08/21/17 06:15
[2017-08-24] MEDS: DIFLUCAN 200 MG/100 ML BAG IV SCH (20:45)
[2017-08-24] MEDS: TYLENOL PO PRN (20:45)
[2017-08-25 01:28] VITALS: BP 116/78
[2017-08-25] MEDS: ZOSYN/NS 3.375GM/50ML 3.375 GM/50 ML BAG IV SCH (01:34)
--- NOTE | 2017-08-25 04:29 | Consultation ---
HISTORY OF PRESENT ILLNESS: This man was admitted about 5 days ago because of abdominal pain and had some nausea, but no vomiting and he had a CAT scan that showed a large collection in the left mid upper abdomen around the spleen, it is about 20 x 50 cm; another one in the right mid upper abdomen, this is about 10 x 12 cm; and the third one smaller in the pancreas area, this is about 3 x 4 cm. He was seen also by surgery. Dr. Eugene has seen him and apparently there was a lot of attempt to have him transferred back to [facility] or Dr. Heller seeing him and trying to arrange for that. Apparently, they have no empty beds. The patient gives a history of ?cancer of the pancreas? with total pancreatectomy? and has been having this pain about 2 days prior to his admission. CAT scan done upon admission on the of this month showed evidence as mentioned above of free collection in the abdomen. There is no air there and he had an ostomy in the right middle abdomen at the junction of the rectosigmoid. The rectum appears to be fluid filled. The wall is thickened with heterogeneous enhancement. There are as mentioned above free irregular fluid collections in the mid left upper flank area and in the right subhepatic place on the right side. There is minimal in the pelvic area. Upon admission, his white count was 11,000, hemoglobin was 6.3, hematocrit was 21.3, platelets were 387. Three days ago, there were 359. His potassium upon admission was 3.4. He was given some potassium and apparently it went up to 4.5. His lactic acid upon admission was 2.50. Alkaline phosphatase was normal. Albumin is low in the range of 1.8. He has been evaluated by Dr. Gusman to aspirate that collection on the left side. This was done 3 days ago and from what I could tell they got only about 2-[address] Kirby also was seeing him. Dr. Johnson, the Infectious Disease MD has seen him as well and the patient has been on Diflucan and on Zosyn. He is afebrile at the present time. The fluid from the abdomen showed gram-negative rods. Apparently, the patient lives by himself. He has no family. PHYSICAL EXAMINATION: GENERAL: Examination at this point showed a thin, slim black male who is in no distress. He is in some pain to the mid upper abdomen. HEAD AND NECK: Negative. NECK: Supple. CHEST: Essentially clear. CARDIOVASCULAR: Heart sounds normal. ABDOMEN: Showed moderate to severe tenderness in the mid left upper abdomen. EXTREMITIES: Showed no sign of edema. IMPRESSION: Abdominal pain, status post colon resection with a colostomy for severe colitis. This was done at [facility] about 3-[address] Heller, our hospitalist, is trying to get him transferred back to [facility] to be attended by his surgical team over there. She is trying to call them at one point and she told me that today or tomorrow, she will try to call them again to arrange for the transfer. The patient does not look that sick to me at the present time, we will continue with the Diflucan and the Zosyn and we will go from there. This man has a colostomy bag that is draining a greenish fluid with the fecal materia. JOB# [id number] QIAN/GLENNY
== END 2017-08-24 23:45 | disposition short-term general hospital (02) | DRG 871 ==
LOC: ED 12:48 → 3A 22:31
PROVIDERS: ADMIT Internal Medicine; ATTEND Internal Medicine
PROC: 30233N1 Transfusion of Nonautologous Red Blood Cells into Peripheral Vein, Percutaneous Approach (ICD-10-PCS; principal; 2017-08-20)
PROC: 0W9F3ZZ Drainage of Abdominal Wall, Percutaneous Approach (ICD-10-PCS; 2017-08-22)
DX: A41.9 Sepsis, unspecified organism (principal); E43 Unspecified severe protein-calorie malnutrition; L02.211 Cutaneous abscess of abdominal wall; Z68.1 Body mass index [BMI] 19.9 or less, adult; K51.90 Ulcerative colitis, unspecified, without complications; D64.9 Anemia, unspecified; Z93.2 Ileostomy status; Z90.49 Acquired absence of other specified parts of digestive tract; Z93.3 Colostomy status
CPT/HCPCS: 10160; 36415; 36430; 74018; 74176; 74177; 76942; 80048; 80053; 80074; 81001; 82140; 85007; 85025; 86140; 86850; 86900; 86901; 86920; 87040; 87076; 87116; 87186; 96365; 96375; J1170; J1450; J1644; J2543; J3370; J3480; J7030; J7040; J7042; J7050; P9016; Q9967